=== PATIENT | male | born 1940 | race Caucasian/White ===

== ENCOUNTER 2016-10-03 16:51 | Inpatient (IN) | payer OTHER ==
--- NOTE | 2016-10-03 16:59 | PDOC ---
Rapid Medical Evaluation Time Seen by Provider: 10/03/16 16:58 Medical Evaluation: Allergies Allergy/AdvReac Type Severity Reaction Status Date / Time No Known Allergies Allergy Verified 01/30/14 09:31 o I have performed a brief in-person evaluation of this patient. o The patient presents with a chief complaint of: blurry vision, memory issue for the past 4 days. Pt had a head CT today; Dr. Nielson sent him over here for admission for possible CVA/TIA. o Pertinent physical exam findings: none o I have ordered the following: labs, EKG, cXR, UA (for admission) o The patient will proceed to the ED for further evaluation.
--- NOTE | 2016-10-03 18:13 | PDOC ---
History of Present Illness - General Chief Complaint: CVA/TIA Stated Complaint: PCP ADMIT Time Seen by Provider: 10/03/16 16:58 History Source: Patient, Family - History of Present Illness Timing/Duration: 1 week Associated Symptoms: denies: headaches, malaise, nausea/vomiting, seizure, weakness Past History - Past Medical History Allergies/Adverse Reactions: Allergies Allergy/AdvReac Type Severity Reaction Status Date / Time No Known Allergies Allergy Verified 10/03/16 17:03 Home Medications: Ambulatory Orders No Home Medications 0 dose .ROUTE UTDICT 01/23/14 Diabetes: Yes HTN: Yes - Surgical History Cholecystectomy: Yes - Psycho/Social/Smoking Cessation Hx Suicidal Ideation: No Smoking History: Never smoked Information on smoking cessation initiated: No Review of Systems - Review of Systems Constitutional: No: Chills, Fever HEENTM: Yes: Blurred Vision. No: Eye Pain ABD/GI: No: Nausea, Vomiting Neurological: No: Headache, Dizziness *Physical Exam - Vital Signs Last Vital Signs Temp Pulse Resp BP Pulse Ox 97.9 F 80 18 162/86 98 10/03/16 16:57 10/03/16 16:57 10/03/16 16:57 10/03/16 16:57 10/03/16 16:57 - Physical Exam General Appearance: Yes: Appropriately Dressed. No: Apparent Distress HEENT: positive: Normal Voice Neck: positive: Supple Respiratory/Chest: positive: Lungs Clear, Normal Breath Sounds. negative: Respiratory Distress Cardiovascular: positive: Regular Rate, S1, S2 Gastrointestinal/Abdominal: positive: Soft. negative: Tender Integumentary: positive: Dry, Warm Neurologic: positive: Fully Oriented, Alert, Normal Mood/Affect, Normal Response , Motor Strength 5/5, Finger to Nose. negative: Facial Droop, Sensory Deficit, Confused, Disoriented ED Treatment Course - LABORATORY CBC & Chemistry Diagram: 10/03/16 17:58 10/03/16 17:58 Medical Decision Making - Medical Decision Making 10/03/16 18:08 76 yo M, h/o ?HTN, NIDDM, sent in by PMD for new brain mets on CT today as per discussion w/ Dr Nielson. Pt has been c/o mostly L sided blurry vision x ~ 1 week. Denies RODRÍGUEZ, dizziness, slurred speech, focal weakness, n/v, seizures or unexplained weight loss. No abd or back pain, and no change in BM or acute urinary issues. See exa, 76 yo m, blurry vision x 1 week w/ new brain mets on CT today Well candice and stable w/ no focal deficit -labs -admit *DC/Admit/Observation/Transfer Diagnosis at time of Disposition: Brain metastases, Blurry vision, bilateral - Discharge Dispostion Condition at time of disposition: Stable Admit: Yes - Referrals Referrals: Chelle Nielson MD [Primary Care Provider] -
[2016-10-03 18:23] LABS: BASOPHIL 0.7 % (0-2.0); EOSINOPHIL 8.9 % (0-4.5); MCH 29.3 pg (25.7-33.7); MCHC 34.2 g/dl (32.0-35.9); MEAN CELL VOLUME 85.7 fl (80-96); MEAN PLT VOLUME 7.2 fl (7.5-11.1); NEUTROPHILS 47.9 % (42.8-82.8); PLATELET COUNT 199 K/MM3 (134-434); RDW 13.5 % (11.9-15.9); WHITE BLOOD COUNT 6.7 K/mm3 (4.0-10.0)
[2016-10-03 18:34] LABS: ANION GAP 9 (8-16); BILIRUBIN,TOTAL 0.7 mg/dL (0.2-1.0); CALCIUM 8.3 mg/dL (8.5-10.1); CO2 29 mmol/L (21-32); CREATININE 0.9 mg/dL (0.7-1.3); GLUCOSE,RANDOM 107 mg/dL (74-106); SGOT/AST 18 U/L (15-37); SGPT/ALT 22 U/L (12-78)
[2016-10-03 18:37] LABS: ALK PHOS 55 U/L (45-117); TROPONIN I < 0.02 ng/ml (0.00-0.05)
[2016-10-03 18:55] LABS: INR 1.03 (0.82-1.09); PROTHROMBIN TIME (PATIENT) 11.3 SEC (9.98-11.88)
[2016-10-03 18:57] LABS: NEG URINE CALC NO; URINE APPEARANCE CLEAR; URINE COLOR YELLOW
[2016-10-03 18:58] LABS: URINE BILIRUBIN NEGATIVE (NEGATIVE); URINE BLOOD NEGATIVE (NEGATIVE); URINE GLUCOSE (UA) NEGATIVE (NEGATIVE); URINE KETONE NEGATIVE (NEGATIVE); URINE PROTEIN NEGATIVE (NEGATIVE); URINE UROBILINOGEN NORMAL E.U./dl (0.2-1.0)
[2016-10-03 18:59] LABS: URINE LEUK ESTERASE NEGATIVE (NEGATIVE); URINE NITRITE NEGATIVE (NEGATIVE)
--- NOTE | 2016-10-03 19:52 | PN ---
Progress Note (short form) - Note Progress Note: NEUROSURGERY CONSULT DICTATED 76 yo RH Male with h/o HTN, NIDDM, ex-smoker 20 years ago c/o mostly L sided blurry vision x ~ 1 week. Denies RODRÍGUEZ, [place], Sz, dizziness, slurred speech, weakness , or numbness. Lost 15 pounds in the past couple months. No h/o primary malignancy. Family at bedside in ED. PE: AF, VSS HEENT- NC/AT; Neck- supple; Cor- RR; Lungs- CTA; Abd- mild protruberant, + BS; Ext- edema and chronic venous changes R > L distal LE A/A/Ox3; memory marginal CN- intact II-XII; Motor- 5/5 without drift; Sensation- intact LT/vibration; DTR -1+; B toes upgoing; Cerebellar- intact B FTN Head CT- Multiple hyperdense (blood fluid levels) and enhancing lesions; R frontal, R occpital; L posterior temporal, L parietal and R cerebellar lesions; + vasogenic edema, mild mass effect Brain MRI (2012 report only)- atrophy, no stroke or reported mass lesion platelet 199, INR 1.03 , Cr 0.9, BUN [address] of Chest/abd/pelvis Brain MRI with/without Multifocal brain lesions are generally not treated surgically No steroid for now given IRINA Mcbride for sz prophylaxis Hold ASA D/w patient, , daughter and Dr Nielson Oncology input Pt concurs with plans
--- NOTE | 2016-10-03 20:48 | CONSULT ---
Consult - text type - Consultation Consultation Note: PAtient comes in with blurry vision. CT head done as outpatient reveals multiple brain mets denies: headaches, malaise, nausea/vomiting, seizure, weakness mildly confused not able to give detailed history reports no complaints. states he is comfortable. tells that he is in the hospital. does not recall the date Past History DM HTN Allergies/Adverse Reactions: Allergies Allergy/AdvReac Type Severity Reaction Status Date / Time No Known Allergies Allergy Verified 10/03/16 17:03 Home Medications Medication Instructions Recorded No Home Medications 0 dose .ROUTE UTDICT 01/23/14 Aspirin [ASA -] 81 mg PO DAILY 10/03/16 Carvedilol [Coreg] 25 mg PO DAILY 10/03/16 Glimepiride [Amaryl -] 4 mg PO BID 10/03/16 Hydrochlorothiazide [Hctz -] 25 mg PO DAILY 10/03/16 Losartan Potassium 100 mg PO DAILY 10/03/16 Metformin HCl 500 mg PO DAILY 10/03/16 - Surgical History Cholecystectomy: Yes *Physical Exam - Vital Signs Last Vital Signs Temp Pulse Resp BP Pulse Ox 97.9 F 80 18 162/86 98 10/03/16 16:57 10/03/16 16:57 10/03/16 16:57 10/03/16 16:57 10/03/16 16:57 - Physical Exam General Appearance: Yes: Appropriately Dressed. No: Apparent Distress HEENT: positive: Normal Voice Neck: positive: Supple Respiratory/Chest: positive: Lungs Clear, Normal Breath Sounds. negative: Respiratory Distress Cardiovascular: positive: Regular Rate, S1, S2 Gastrointestinal/Abdominal: positive: Soft. negative: Tender Integumentary: positive: Dry, Warm Neurologic: positive: Fully Oriented, Alert, Normal Mood/Affect, Normal Response , Motor Strength 5/5, Finger to Nose. negative: Facial Droop, Sensory Deficit, Confused, Disoriented Abnormal Lab Results 10/03/16 10/03/16 17:58 17:58 Hct 35.0 L MPV 7.2 L Monocytes % 10.7 H Eosinophils % 8.9 H Random Glucose 107 H Calcium 8.3 L Total Protein 6.0 L Albumin 3.0 L A/P 76 yo M, h/o ?HTN, NIDDM, sent in by PMD for new brain mets on CT today as per discussion w/ Dr Nielson. Pt has been c/o mostly L sided blurry vision x ~ 1 week. Denies RODRÍGUEZ, dizziness, slurred speech, focal weakness, n/v, seizures or unexplained weight loss. No abd or back pain, and no change in bowel habits or acute urinary issues. Patient mildly confused Brain mets noted on CT scan--multiple, with moderate edema and ? intralesional bleed will start decadron 4mg Q 6h/protonix/gentlee hydration awaiting CT c/a/p to consider biopsy of easily accessible lesion neurosurgery input noted will get rad-onc nput
--- NOTE | 2016-10-03 20:57 | HP ---
DATE OF ADMISSION: DATE OF DICTATION: 10/03/2016 HISTORY OF PRESENT ILLNESS: This is a 76-year-old male who came to my office referred by summer intern. Patient is not known to me before. He is free of hypertension, diabetes. Some visual disturbance was noted by the summer intern, he advised CT scan. CT scan was done today, it showed multiple brain metastases, so being admitted to the hospital. PHYSICAL EXAMINATION: General: He is awake and talking. Vital signs: Blood pressure 130/80, pulse 76, respirations 20, temperature 98. HEENT: Unremarkable. Neck: Supple. No JVD. Lungs: Clear. Heart: S1, S2 normal. No S3, S4. Abdomen: Soft. There is possible soft tissue mass noted in the right upper quadrant. Extremities: Legs no edema. Neurologic: Examination intact. LABORATORY: WBC 6.7, hemoglobin 12, hematocrit 35, INR 1.3. Chemistry unremarkable. Calcium 8.3, albumin 3. IMPRESSION: Metastatic disease to the brain, etiology not clear. Case discussed with , advised admission. More CAT scan and another MRI of the brain done. Explained to the daughter about the disease. Patient is presently informed. FINAL DIAGNOSIS: Metastatic brain disease, primary not known at this time. Cherelle [id number]
[2016-10-03] MEDS ORDERED: PT OWN MED DRAWER 7, Y5N ONE (23:02)
[2016-10-03] MEDS: levETIRAcetam 500 MG TABLET (FP) PO SCH (23:12)
[2016-10-03] MEDS: SODIUM CHLORIDE 1,000 ML IV SCH (23:12)
[2016-10-03 23:55] VITALS: BMI 25.8
[2016-10-04] MEDS: DEXAMETHASONE SOD PHOSPHATE 4 MG/1 ML VIAL IVPB SCH ×4 (03:06→21:41)
--- NOTE | 2016-10-04 08:24 | HP ---
Admitting History and Physical - Primary Care Physician PCP: Chelle Nielson - Admission Chief Complaint: Blurring vision in left eye History of Present Illness: 76 yrs old man H/O HTN, T2DM , yesterday admitted with abnormal Ct head that show multiple Brain opacities, patient has been havig blurring of vision in Left eye for past few wks, visited [employer] [place] , Ct haed was performed that shows multiple enhancing mass so admitted for further evaluation , patient denies any head ache, nausea, vomiting or double vision denies any wt loss, difficulty in swallowing, no motor sensory deficit. Patient never had Colonoscopy denies any family history of malignancy. History Source: Patient - Past Medical History Cardiovascular: Yes: HTN Endocrine: Yes: Diabetes Mellitus - Smoking History Smoking history: Never smoked Home Medications - Allergies Allergies/Adverse Reactions: Allergies Allergy/AdvReac Type Severity Reaction Status Date / Time No Known Allergies Allergy Verified 10/03/16 17:03 - Home Medications Home Medications: Ambulatory Orders No Home Medications 0 dose .ROUTE UTDICT 01/23/14 Aspirin [ASA -] 81 mg PO DAILY 10/03/16 Carvedilol [Coreg] 25 mg PO DAILY 10/03/16 Glimepiride [Amaryl -] 4 mg PO BID 10/03/16 Hydrochlorothiazide [Hctz -] 25 mg PO DAILY 10/03/16 Losartan Potassium 100 mg PO DAILY 10/03/16 Metformin HCl 500 mg PO DAILY 10/03/16 Family Disease History - Family Disease History Family History: Denies Family Disease History: Heart Disease: Grandparent, Father, Mother, Brother, Sister, Son, Daughter, CA: Grandparent, Father, Mother, Brother, Sister, Son, Daughter Physical Examination Vital Signs: Vital Signs Temperature 97.6 F 10/04/16 05:55 Pulse Rate 80 10/04/16 05:55 Respiratory Rate 18 10/04/16 05:55 Blood Pressure 153/74 10/04/16 05:55 O2 Sat by Pulse Oximetry (%) 99 10/03/16 21:39 GENERAL; Elderly man walking comfortably, not in distress HEENT:MM moist, no facial asymmetry, mm moist, no Jaundice, anemia, PERLLA, EOMI NECK:No Palpable node, no JVD, No bruit, Supple. CHEST:Non tender CTA B/L CVS:S1S2 R no murmur Gallop or rub ABDOMEN:No distention, non tender, no organomegaly BS + EXTREMITIES:Rt calf tenderness with Rt LE swelling with venous stasis changes , Pulses + [employer]ER:AOx3, normal cranial N, no motor sensory deficit, normal reflexes DERM: No rash or echymoses Imaging - Results Chest X-ray: Report Reviewed (Normal, no Cardiomegaly) Cat Scan: Image Reviewed (Ct Head shows Multiple hypodensities.) Ultrasound: Pending, Report Reviewed, Image Reviewed, Other (Rt Le Extensive DVT ) MRI: Pending, Other (Brain report is pending) EKG: Pending Problem List - Problems (1) Brain metastases Assessment/Plan: C/O Blurring of vision multiple, enhancing lesion, needs w/u for primary, never had Colonoscopy ex smoker stopped smoking 30 yrs ago no c/o dysuria will F/U PSA Cont Decadroone and Keppra, Oncology and Neuro surgery input appreciated. Code(s): C79.31 - SECONDARY MALIGNANT NEOPLASM OF BRAIN (2) Blurry vision, bilateral Assessment/Plan: Due to Brain mets , unknown Primary lesion, no clinical sign of cerbral edema, evaluated by Oncology and Neuro Surgery, will F/u work for primary site, mean time cont decadrone and Keppra for seizures and Brain edema prophylaxis . Code(s): H53.8 - OTHER VISUAL DISTURBANCES (3) HTN (hypertension) Assessment/Plan: Well controlled on current meds, Cont Coreg, HCTZ and Losartan at home dose Hold Code(s): I10 - ESSENTIAL (PRIMARY) HYPERTENSION (4) Diabetes mellitus Assessment/Plan: H/O T2DM on oral pills will hold metformin cont Amary , considering on HIgh dose steroids cont correction dose pre meal coverage. F/U HbA1C level Code(s): E11.9 - TYPE 2 DIABETES MELLITUS WITHOUT COMPLICATIONS Qualifiers: Diabetes mellitus type: type 2 Diabetes mellitus complication status: without complication (5) Deep vein blood clot of right lower extremity Assessment/Plan: Patient c/o Rt Le swelling and pain for past few days, LE Doppler shows Rt LE extensive DVT till common Femoral V, patient has multiple mets will consult Oncology for input if patient needs IVC filter Code(s): I82.401 - ACUTE EMBOLISM AND THOMBOS UNSP DEEP VEINS OF R LOW EXTREM Qualifiers: Affected thrombotic vein of extremity: femoral Chronicity: acute Qualified Code(s): I82.411 - Acute embolism and thrombosis of right femoral vein (6) Pulmonary nodule Assessment/Plan: 1.6 Cm Left UL Pulmonary nodule with Medistinal LN enlargement, will F/u with Oncology/Pulmonary Code(s): R91.1 - SOLITARY PULMONARY NODULE (7) Colonic thickening Assessment/Plan: Colonic wall thickening, patient never had colonoscopy will F/U with Gi consult for input and possible for colonnoscopy to R/U Ca colon. Code(s): K63.9 - DISEASE OF INTESTINE, UNSPECIFIED
[2016-10-04] MEDS ORDERED: INSULIN SLIDING SCALE (NOVOLOG) 1 VIAL SQ SCH (11:00)
[2016-10-04] MEDS: CARVEDILOL 25 MG TABLET (FP) PO SCH (12:30)
[2016-10-04] MEDS: GLIMEPIRIDE 4 MG TABLET (FP) PO SCH ×2 (12:30→17:05)
[2016-10-04] MEDS: LOSARTAN POTASSIUM 50 MG TABLET (FP) PO SCH (12:30)
[2016-10-04] MEDS: levETIRAcetam 500 MG TABLET (FP) PO SCH ×2 (12:30→21:41)
[2016-10-04] MEDS: HYDROCHLOROTHIAZIDE 25 MG TABLET (FP) PO SCH (12:30)
[2016-10-04] MEDS: PANTOPRAZOLE 40 MG TABLET (FP) PO SCH (12:30)
--- NOTE | 2016-10-04 13:22 | CONS ---
DATE OF CONSULTATION: 10/03/2016 REFERRING PHYSICIAN: Chelle Nielson MD CONSULTING PHYSICIAN: Johnathon López MD, neurosurgery. CHIEF COMPLAINT: One week history of blurriness and CT scan evidence of probable intracranial metastases. HISTORY OF PRESENT ILLNESS: The patient is a 76-year-old right-handed male with history of hypertension and type 2 diabetes, who has complained of an approximately 1-week history of left and right eye blurriness. This has improved more recently. The patients daughter did report that he had lost some weight and reported some changes to his overall personality and behavior over the past month at least. He denies any primary sustained malignancy. He is an ex-smoker and quit smoking 20 + years ago by report. He does not have a history of GI cancer or skin cancer by report. There is no nausea, vomiting, seizure activity, weakness, numbness, diplopia, or any other signs of neurological dysfunction. PAST MEDICAL HISTORY: Significant for hypertension and type 2 diabetes. MEDICATIONS: Include baby aspirin and metformin. ALLERGIES: There are no known drug allergies. FAMILY HISTORY: Noncontributory. SOCIAL HISTORY: He is an ex-smoker and used to smoke about 1 pack of cigarettes a day until about 20 years earlier. He drinks alcohol socially. He is retired and has lived down in the [facility] in the winter months in general. REVIEW OF SYSTEMS: Otherwise negative for other major cardiovascular, pulmonary , gastrointestinal, genitourinary, endocrinologic, neurologic, or psychologic problems except for the above. PHYSICAL EXAMINATION: Vital signs: Temperature is 98.4, blood pressure is 171/78, with pulse rate of 76, O2 saturation is 98% on room air. HEENT: Examination shows him to be normocephalic, atraumatic, anicteric. Neck: Supple. Coronary: Examination demonstrated regular rhythm. Lungs: Clear bilaterally. Abdomen: Mildly protuberant. He has active bowel sounds. Extremities: Examination shows chronic venous changes of bilateral lower extremities, right greater than left, with 1 to 2+ edema. There is satisfactory capillary refill. Pt reports chronic R > L LE swelling. Neurologic: He is awake, alert, and oriented x3. His speech is normal. His memory is adequate. There is no other higher cortical function deficit. Cranial nerve examination is intact 2 through 12. Motor examination shows 5/5 strength without drift. Sensory examination is intact to light touch and vibratory sensation. Deep tendon reflexes are hyporeflexic throughout. He has bilateral upgoing toes. His gait was not tested for safety reasons. Cerebellar examination demonstrated intact finger to nose examination. LABORATORY EXAMINATION: Shows sodium to be 145, potassium to be 3.7, BUN is 16, creatinine is 0.9, random glucose is 107, albumin is 3.0. INR is 1.03. White blood cell count is 6700, hemoglobin is 12, hematocrit 35, and platelet count is 199, 000. Urinalysis is negative. CT scan of the head demonstrated multifocal intracranial hyperdense lesion which enhances further with contrast administration. There is surrounding vasogenic edema around the various lesions. There is a white medial occipital lesion, a left posterior temporal lesion, a right frontal convexity lesion as well as several smaller left parietal lesions with satellites. There is mild mass effect. Mild cerebral atrophy is noted. There may be possibly enhancing lesion in the right cerebellum, as well. There is some possible blood fluid level. IMPRESSION: 1. Probable hemorrhagic metastatic lesions to the brain of unknown primary. 2. Hypertension. 3. Diabetes. RECOMMENDATIONS: The patient presents with some personality and behavioral changes in the last month or so according to the daughter. He also has some left eye blurry vision, which has improved in the last day or two. He denies any sign of increasing cranial pressure otherwise. Physical examination is nonfocal. CT scan of the brain demonstrated a multifocal hyperdense and possibly hemorrhagic lesion with enhancement. This is most consistent with metastasis. Hemorrhagic lesions are common with renal cell carcinoma, melanoma, and lung cancer. Baseline oncology evaluation is recommended. Baby aspirin should be held at this time. Keppra for seizure prophylaxis is ordered. Given the multiple intracranial lesion as well as associated cerebral vasogenic oedema. CT scan of the chest, abdomen, and pelvis has been ordered by the medical team. The above plan was discussed with the patient, his family, as well as Dr. Nielson, the referring medical attending. We will hold off steroids for right now given his history of diabetes. All questions were answered at the bedside. The patient concurred with the treatment plan at this time. JOHNATHON LÓPEZ M.D. [id number] MTDD
[2016-10-04] MEDS: INSULIN SLIDING SCALE (NOVOLOG) 1 VIAL SQ SCH ×2 (17:06→22:02)
[2016-10-04] MEDS: SODIUM CHLORIDE 1,000 ML IV SCH (21:41)
[2016-10-04] MEDS ORDERED: INSULIN (NOVOLOG) ASPART 100 UNITS/ML 10ML VIAL ONE (21:55)
[2016-10-05] MEDS: DEXAMETHASONE SOD PHOSPHATE 4 MG/1 ML VIAL IVPB SCH ×4 (03:33→22:55)
[2016-10-05] MEDS: INSULIN SLIDING SCALE (NOVOLOG) 1 VIAL SQ SCH ×3 (06:27→16:56)
[2016-10-05] MEDS: GLIMEPIRIDE 4 MG TABLET (FP) PO SCH ×2 (06:27→16:56)
[2016-10-05 08:02] LABS: BASOPHIL 0.1 % (0-2.0); MCH 29.1 pg (25.7-33.7); MCHC 34.1 g/dl (32.0-35.9); MEAN CELL VOLUME 85.3 fl (80-96); MEAN PLT VOLUME 7.3 fl (7.5-11.1); NEUTROPHILS 84.2 % (42.8-82.8); PLATELET COUNT 202 K/MM3 (134-434); RDW 13.1 % (11.9-15.9); WHITE BLOOD COUNT 8.3 K/mm3 (4.0-10.0)
[2016-10-05 08:36] LABS: ALBUMIN 3.1 g/dl (3.4-5.0); ANION GAP 11 (8-16); CALCIUM 8.4 mg/dL (8.5-10.1); CO2 26 mmol/L (21-32); GLUCOSE,RANDOM 247 mg/dL (74-106); SGOT/AST 13 U/L (15-37); SGPT/ALT 21 U/L (12-78)
[2016-10-05 08:37] LABS: ALK PHOS 54 U/L (45-117); BILIRUBIN,TOTAL 0.7 mg/dL (0.2-1.0); CREATININE 0.9 mg/dL (0.7-1.3); TOT PROT 6.3 g/dl (6.4-8.2)
[2016-10-05] MEDS ORDERED: ENOXAPARIN NA (PORCINE) 40 MG/0.4 ML DISP.SYRIN SQ SCH (10:00)
--- NOTE | 2016-10-05 10:06 | PN ---
Progress Note (short form) - Note Progress Note: NEUROSURGERY No H/A, N/V PE: Tmax 98.6, AF, VSS HEENT- NC/AT; Neck- supple; Cor- RR; Lungs- CTA; Abd- mildly distended, + BS; Ext- edema and chronic venous changes R > L distal LE A/A/Ox3, speech fluent CN- intact II-XII; Motor- 5/5 without drift; Sensation- intact LT/vibration; DTR -1+; B toes upgoing; Cerebellar- intact B FTN Head CT- Multiple hyperdense (blood fluid levels) and enhancing lesions; R frontal, R occipital; L posterior temporal, L parietal and R cerebellar lesions ; + vasogenic edema, mild mass effect Brain MRI (2012 report only)- atrophy, no stroke or reported mass lesion New Brain MRI- multifocal enhancing lesion,(L frontal, L parietal, L posterior temporal, R frontal, R medial occipital, R cerebellar); L posterior temporal cystic component, + some vasogenic edema; No HCP CT of Chest/abd/pelvis- multiple mediastinal nodes; diverticulosis Doppler- R LE DVT Multifocal brain mets are generally not treated surgically Keaurelianora for sz prophylaxis R LE DVT, SQ heparin for now and IVC filter Oncology f/u and thoracic surgery input for possible thoroscopic bx of mediastinal nodes D/w Dr Nielson and Dr Everett Pt concurs with plans
--- NOTE | 2016-10-05 10:09 | PN ---
Progress Note, Physician Chief Complaint: Fees better History of Present Illness: Has DVT Rt lower extremity Case discussed with Dr Borjas and Nicolasa,needs IVC filter - Current Medication List Current Medications: Active Medications Carvedilol (Coreg -) 25 mg PO DAILY [facility] Last Admin: 10/04/16 12:30 Dose: 25 mg Dexamethasone Sodium Phosphate (Decadron Injection -) 4 mg IVPB Q6H-IV [facility] Last Admin: 10/05/16 03:33 Dose: 4 mg Glimepiride (Amaryl -) 4 mg PO 0700,1630 [facility] Last Admin: 10/05/16 06:27 Dose: 4 mg Hydrochlorothiazide (Hctz -) 25 mg PO DAILY [facility] Last Admin: 10/04/16 12:30 Dose: 25 mg Insulin Aspart (Novolog Vial Sliding Scale -) 1 vial SQ TIDAC [facility] PRN Reason: Protocol Last Admin: 10/05/16 06:27 Dose: 8 units Levetiracetam (Keppra -) 500 mg PO BID [facility] Last Admin: 10/04/16 21:41 Dose: 500 mg Losartan Potassium (Cozaar -) 100 mg PO DAILY [facility] Last Admin: 10/04/16 12:30 Dose: 100 mg Pantoprazole Sodium (Protonix -) 40 mg PO DAILY [facility] Last Admin: 10/04/16 12:30 Dose: 40 mg - Objective Vital Signs: Vital Signs Temperature 97.4 F L 10/05/16 05:00 Pulse Rate 71 10/05/16 05:00 Respiratory Rate 18 10/05/16 05:00 Blood Pressure 145/75 10/05/16 05:00 O2 Sat by Pulse Oximetry (%) 100 10/04/16 21:00 Constitutional: Yes: Calm Eyes: Yes: WNL HENT: Yes: WNL Neck: Yes: WNL Cardiovascular: Yes: WNL Respiratory: Yes: WNL Gastrointestinal: Yes: WNL ...Rectal Exam: Yes: Deferred Neurological: Yes: Alert Labs: CBC, BMP 10/05/16 06:30 10/05/16 06:30 INR, PTT INR 1.03 (0.82-1.09) 10/03/16 17:58 - ....Imaging Cat Scan: Report Reviewed
--- NOTE | 2016-10-05 10:11 | PN ---
Progress Note, Physician - Current Medication List Current Medications: Active Medications Carvedilol (Coreg -) 25 mg PO DAILY [facility] Last Admin: 10/04/16 12:30 Dose: 25 mg Dexamethasone Sodium Phosphate (Decadron Injection -) 4 mg IVPB Q6H-IV [facility] Last Admin: 10/05/16 03:33 Dose: 4 mg Glimepiride (Amaryl -) 4 mg PO 0700,1630 [facility] Last Admin: 10/05/16 06:27 Dose: 4 mg Hydrochlorothiazide (Hctz -) 25 mg PO DAILY [facility] Last Admin: 10/04/16 12:30 Dose: 25 mg Insulin Aspart (Novolog Vial Sliding Scale -) 1 vial SQ TIDAC [facility] PRN Reason: Protocol Last Admin: 10/05/16 06:27 Dose: 8 units Levetiracetam (Keppra -) 500 mg PO BID [facility] Last Admin: 10/04/16 21:41 Dose: 500 mg Losartan Potassium (Cozaar -) 100 mg PO DAILY [facility] Last Admin: 10/04/16 12:30 Dose: 100 mg Pantoprazole Sodium (Protonix -) 40 mg PO DAILY [facility] Last Admin: 10/04/16 12:30 Dose: 40 mg - Objective Vital Signs: Vital Signs Temperature 97.4 F L 10/05/16 05:00 Pulse Rate 71 10/05/16 05:00 Respiratory Rate 18 10/05/16 05:00 Blood Pressure 145/75 10/05/16 05:00 O2 Sat by Pulse Oximetry (%) 100 10/04/16 21:00 Labs: CBC, BMP 10/05/16 06:30 10/05/16 06:30 INR, PTT INR 1.03 (0.82-1.09) 10/03/16 17:58 Assessment/Plan IVC filter ,Continue IV decadron
[2016-10-05] MEDS: CARVEDILOL 25 MG TABLET (FP) PO SCH (10:45)
[2016-10-05] MEDS: levETIRAcetam 500 MG TABLET (FP) PO SCH ×2 (10:45→22:56)
[2016-10-05] MEDS: LOSARTAN POTASSIUM 50 MG TABLET (FP) PO SCH (10:45)
[2016-10-05] MEDS: PANTOPRAZOLE 40 MG TABLET (FP) PO SCH (10:45)
[2016-10-05] MEDS: HYDROCHLOROTHIAZIDE 25 MG TABLET (FP) PO SCH (10:45)
--- NOTE | 2016-10-05 13:31 | EKG ---
Test Reason : Blood Pressure : / mmHG Vent. Rate : 078 BPM Atrial Rate : 078 BPM P-R Int : 152 ms QRS Dur : 094 ms QT Int : 408 ms P-R-T Axes : 041 -31 038 degrees QTc Int : 465 ms SINUS RHYTHM WITH OCCASIONAL PREMATURE VENTRICULAR COMPLEXES LEFT AXIS DEVIATION CANNOT RULE OUT ANTERIOR INFARCT , AGE UNDETERMINED ABNORMAL ECG WHEN COMPARED WITH ECG OF 25-JAN-2009 16:00, PREMATURE VENTRICULAR COMPLEXES ARE NOW PRESENT Confirmed by TON ALFARO, DEMIAN ([id number]) on 10/05/2016 1:31:22 PM Referred By: Confirmed By:DEMIAN CAMILO MD
--- NOTE | 2016-10-05 13:31 | EKG ---
Test Reason : Blood Pressure : / mmHG Vent. Rate : 073 BPM Atrial Rate : 073 BPM P-R Int : 146 ms QRS Dur : 102 ms QT Int : 432 ms P-R-T Axes : 024 -27 012 degrees QTc Int : 475 ms SINUS RHYTHM WITH OCCASIONAL and consecutive PREMATURE VENTRICULAR COMPLEXES NONSPECIFIC ST AND T WAVE ABNORMALITY ABNORMAL ECG WHEN COMPARED WITH ECG OF 03-OCT-2016 17:39, NONSPECIFIC T WAVE ABNORMALITY NOW EVIDENT IN INFERIOR LEADS Confirmed by TON ALFARO, DEMIAN ([id number]) on 10/05/2016 1:31:14 PM Referred By: Chely PARMAR Confirmed By:DEMIAN CAMILO MD
[2016-10-05] MEDS ORDERED: PT OWN MED DRAWER 7, Y5N ONE (16:51)
--- NOTE | 2016-10-05 20:07 | PN ---
Progress Note (short form) - Note Progress Note: PAtient seen and examined Denies any complaints Last Vital Signs Temp Pulse Resp BP Pulse Ox 97.3 F L 71 20 118/52 100 10/05/16 18:44 10/05/16 18:44 10/05/16 18:44 10/05/16 18:44 10/05/16 12:35 Cor: RSR, No murmurs, No gallops Lungs: Clear to P&A Abd: Soft, Normal bowel sounds, No organomegaly Ext:No significant edema Skin: No rashes, Integument intact Abnormal Lab Results 10/05/16 10/05/16 06:30 06:30 MPV 7.3 L Neutrophils % 84.2 H D Monocytes % 2.9 L Random Glucose 247 H D Calcium 8.4 L AST 13 L D Total Protein 6.3 L Albumin 3.1 L Current Medications Carvedilol (Coreg -) 25 mg PO DAILY [facility] Last Admin: 10/05/16 10:45 Dose: 25 mg Dexamethasone Sodium Phosphate (Decadron Injection -) 4 mg IVPB Q6H-IV [facility] Last Admin: 10/05/16 16:10 Dose: 4 mg Glimepiride (Amaryl -) 4 mg PO 0700,1630 [facility] Last Admin: 10/05/16 16:56 Dose: 4 mg Hydrochlorothiazide (Hctz -) 25 mg PO DAILY [facility] Last Admin: 10/05/16 10:45 Dose: 25 mg Insulin Aspart (Novolog Vial Sliding Scale -) 1 vial SQ TIDAC [facility] PRN Reason: Protocol Last Admin: 10/05/16 16:56 Dose: 12 units Levetiracetam (Keppra -) 500 mg PO BID [facility] Last Admin: 10/05/16 10:45 Dose: 500 mg Losartan Potassium (Cozaar -) 100 mg PO DAILY [facility] Last Admin: 10/05/16 10:45 Dose: 100 mg Pantoprazole Sodium (Protonix -) 40 mg PO DAILY [facility] Last Admin: 10/05/16 10:45 Dose: 40 mg A/P 76 y/o patient with multiple brain mets. DELMAR lung lesion, mediastinal adenopathy , thickening of colon discussed with neurosurgery disucssed with IR s/p ivc filter today , given DVT and brain mets to get biopsy of DELMAR lung mass discussed with patient and his sister in great detail discussed overall poor prognosis continue decadron/protonix
[2016-10-06] MEDS: DEXAMETHASONE SOD PHOSPHATE 4 MG/1 ML VIAL IVPB SCH ×5 (03:15→22:18)
[2016-10-06] MEDS ORDERED: LORAZEPAM CARPU-JECT 2 MG/ML DISP.SYRIN IVPUSH ONE (06:05)
[2016-10-06] MEDS: GLIMEPIRIDE 4 MG TABLET (FP) PO SCH ×2 (06:11→17:16)
[2016-10-06] MEDS: INSULIN SLIDING SCALE (NOVOLOG) 1 VIAL SQ SCH ×3 (06:11→17:16)
--- NOTE | 2016-10-06 06:14 | HOSP ---
Subjective - Review of Symptoms Events since last encounter: 76 y/o Male with metastatic brain cancer, and lung mass, found to be aggitated and confused. Patient reported to be walking into other people's room. Patient believes he is at his home and that his who has had dementia for a long time, is in the house. Condition 10 called. On examination patient Alert and oriented to self only. Aggitated and confused. Neurological: Yes: Confusion Physical Examination Vital Signs: Vital Signs Temperature 97.6 F 10/06/16 02:00 Pulse Rate 97 H 10/06/16 02:00 Respiratory Rate 20 10/06/16 02:00 Blood Pressure 98/55 10/06/16 02:00 O2 Sat by Pulse Oximetry (%) 100 10/05/16 12:35 Constitutional: Yes: Well Nourished, Obese Eyes: Yes: WNL HENT: Yes: Atraumatic, Normocephalic Neck: Yes: WNL Cardiovascular: Yes: WNL Respiratory: Yes: WNL Gastrointestinal: Yes: WNL Musculoskeletal: Yes: WNL Extremities: Yes: WNL Peripheral Pulses WNL: Yes Integumentary: Yes: WNL Neurological: Yes: Confusion. No: Unsteady Gait ...Motor Strength: WNL Psychiatric: Yes: Agitated Labs: CBC, BMP 10/05/16 06:30 10/05/16 06:30 Hospitalist Encounter Assessment: Confusion and aggitation secondary to brain mets- non compliant with medication - Decadron. Recommendations/Interventions: Patient convinced to take decadron and given ativan 2mg IVP stat. Recommend advance directives to be d/w family.
--- NOTE | 2016-10-06 08:30 | PN ---
Progress Note (short form) - Note Progress Note: NEUROSURGERY No H/A, N/V S/p IVC filter PE: AF, VSS HEENT- NC/AT; Neck- supple; Cor- RR; Lungs- CTA; Abd- mildly distended, + BS; Ext- edema and chronic venous changes R > L distal LE; stable A/A/Ox3, speech fluent CN- intact II-XII; Motor- 5/5 without drift; Sensation- intact LT/vibration; DTR -1+; B toes upgoing; Cerebellar- intact B FTN Head CT- Multiple hyperdense (blood fluid levels) and enhancing lesions; R frontal, R occipital; L posterior temporal, L parietal and R cerebellar lesions ; + vasogenic edema, mild mass effect Brain MRI (2012 report only)- atrophy, no stroke or reported mass lesion New Brain MRI- multifocal enhancing lesion,(L frontal, L parietal, L posterior temporal, R frontal, R medial occipital, R cerebellar); L posterior temporal cystic component, + some vasogenic edema; No HCP CT of Chest/abd/pelvis- DELMAR lesion, multiple mediastinal nodes; diverticulosis Doppler- R LE DVT Multifocal brain mets Silvinoppra for sz prophylaxis R LE DVT, s/p IVC filter; leg elevation when on bed D/w Dr Everett yesterday Possible thoracic surgery input for possible thoroscopic bx of mediastinal nodes /DELMAR lesions
--- NOTE | 2016-10-06 09:51 | PN ---
Progress Note, Physician Chief Complaint: Confused History of Present Illness: Going for lung biopsy by Dr Castellano - Current Medication List Current Medications: Active Medications Carvedilol (Coreg -) 25 mg PO DAILY [facility] Last Admin: 10/05/16 10:45 Dose: 25 mg Dexamethasone Sodium Phosphate (Decadron Injection -) 4 mg IVPB Q6H-IV [facility] Last Admin: 10/06/16 08:13 Dose: 4 mg Glimepiride (Amaryl -) 4 mg PO 0700,1630 [facility] Last Admin: 10/06/16 06:11 Dose: Not Given Hydrochlorothiazide (Hctz -) 25 mg PO DAILY [facility] Last Admin: 10/05/16 10:45 Dose: 25 mg Insulin Aspart (Novolog Vial Sliding Scale -) 1 vial SQ TIDAC [facility] PRN Reason: Protocol Last Admin: 10/06/16 06:11 Dose: Not Given Levetiracetam (Keppra -) 500 mg PO BID [facility] Last Admin: 10/05/16 22:56 Dose: Not Given Losartan Potassium (Cozaar -) 100 mg PO DAILY [facility] Last Admin: 10/05/16 10:45 Dose: 100 mg Pantoprazole Sodium (Protonix -) 40 mg PO DAILY [facility] Last Admin: 10/05/16 10:45 Dose: 40 mg - Objective Vital Signs: Vital Signs Temperature 97.6 F 10/06/16 09:12 Pulse Rate 80 10/06/16 09:12 Respiratory Rate 16 10/06/16 09:12 Blood Pressure 137/77 10/06/16 09:12 O2 Sat by Pulse Oximetry (%) 100 10/05/16 12:35 Constitutional: Yes: Mild Distress Eyes: Yes: WNL HENT: Yes: WNL Neck: Yes: WNL Cardiovascular: Yes: WNL Respiratory: Yes: WNL Gastrointestinal: Yes: WNL ...Rectal Exam: Yes: Deferred Genitourinary: Yes: WNL Musculoskeletal: Yes: WNL Extremities: Yes: WNL Edema: No Labs: CBC, BMP 10/05/16 06:30 10/05/16 06:30 INR, PTT INR 1.03 (0.82-1.09) 10/03/16 17:58 Assessment/Plan Plans depends on the bx reports
[2016-10-06 10:09] LABS: BASOPHIL 0.2 % (0-2.0); MCH 28.5 pg (25.7-33.7); MCHC 33.4 g/dl (32.0-35.9); MEAN CELL VOLUME 85.4 fl (80-96); MEAN PLT VOLUME 7.7 fl (7.5-11.1); NEUTROPHILS 86.7 % (42.8-82.8); PLATELET COUNT 243 K/MM3 (134-434); RDW 13.5 % (11.9-15.9); WHITE BLOOD COUNT 11.6 K/mm3 (4.0-10.0)
[2016-10-06 10:17] LABS: INR 1.02 (0.82-1.09); PROTHROMBIN TIME (PATIENT) 11.2 SEC (9.98-11.88)
[2016-10-06 10:20] LABS: ACTIVATED PTT 25.1 SECONDS (26.9-34.4)
[2016-10-06] MEDS ORDERED: INSULIN (NOVOLOG) ASPART 100 UNITS/ML 10ML VIAL ONE (12:11)
[2016-10-06] MEDS: levETIRAcetam 500 MG TABLET (FP) PO SCH ×2 (12:14→22:18)
[2016-10-06] MEDS: LOSARTAN POTASSIUM 50 MG TABLET (FP) PO SCH (12:14)
[2016-10-06] MEDS: CARVEDILOL 25 MG TABLET (FP) PO SCH (12:14)
[2016-10-06] MEDS: HYDROCHLOROTHIAZIDE 25 MG TABLET (FP) PO SCH (12:14)
[2016-10-06] MEDS: PANTOPRAZOLE 40 MG TABLET (FP) PO SCH (12:15)
--- NOTE | 2016-10-06 18:05 | PN ---
Progress Note (short form) - Note Progress Note: PAtient seen and examined Denies any complaints mildly confused Last Vital Signs Temp Pulse Resp BP Pulse Ox 97.5 F L 72 20 114/70 96 10/06/16 13:55 10/06/16 13:55 10/06/16 13:55 10/06/16 13:55 10/06/16 09:00 Cor: RSR, No murmurs, No gallops Lungs: Clear to P&A Abd: Soft, Normal bowel sounds, No organomegaly Ext:No significant edema Skin: No rashes, Integument intact Abnormal Lab Results 10/06/16 10/06/16 09:30 09:30 WBC 11.6 H D Neutrophils % 86.7 H PTT (Actin FS) 25.1 L Current Medications Carvedilol (Coreg -) 25 mg PO DAILY [facility] Last Admin: 10/06/16 12:14 Dose: 25 mg Dexamethasone Sodium Phosphate (Decadron Injection -) 4 mg IVPB Q6H-IV [facility] Last Admin: 10/06/16 15:30 Dose: 4 mg Glimepiride (Amaryl -) 4 mg PO 0700,1630 [facility] Last Admin: 10/06/16 17:16 Dose: 4 mg Hydrochlorothiazide (Hctz -) 25 mg PO DAILY [facility] Last Admin: 10/06/16 12:14 Dose: 25 mg Insulin Aspart (Novolog Vial Sliding Scale -) 1 vial SQ TIDAC [facility] PRN Reason: Protocol Last Admin: 10/06/16 17:16 Dose: 4 units Levetiracetam (Keppra -) 500 mg PO BID [facility] Last Admin: 10/06/16 12:14 Dose: 500 mg Losartan Potassium (Cozaar -) 100 mg PO DAILY [facility] Last Admin: 10/06/16 12:14 Dose: 100 mg Pantoprazole Sodium (Protonix -) 40 mg PO DAILY [facility] Last Admin: 10/06/16 12:15 Dose: 40 mg A/P 76 y/o patient with multiple brain mets. DELMAR lung lesion, mediastinal adenopathy , thickening of colon disucssed with IR s/p ivc filter , given DVT and brain mets to get biopsy of DELMAR lung mass tomorrow---discussed with family, including complications of pneumothorax discussed overall poor prognosis social service worker consult continue decadron/protonix
[2016-10-06] MEDS ORDERED: LORAZEPAM CARPU-JECT 2 MG/ML DISP.SYRIN IVPUSH PRN (23:38)
--- NOTE | 2016-10-06 23:43 | HOSP ---
Subjective - Review of Symptoms Events since last encounter: Was paged by the nurse from 7th floor that patient has been wandering in the [place]. Immediately went to assess the patient. He was lying comfortably in bed. Patient mentioned that he will go home early tomorrow at 9am; his who has alzheimers is at his daughters house and was upset that she couldn't stay with him. Denies chest pain, sob, cough, palpitation, abdominal pain, nausea, vomiting, headache, dizziness, tingling or numbness. As per the nurse, patient mentioned about "pistols" and scared them. However, no intentions to harm himself or anyone. Vitals: BP-142/89mmHg ;P- 109 bpm ; T-97.8F ; RR-16 Physical examination: General: Elderly male, lying comfortably in bed, orientation (unable to obtain as patient didn't want to answer), not in acute distress. HEENT: EOM intact, no pallor or icterus Chest: B/L lungs clear, no added sounds CVS: Regular, s1, s2 no murmur Abdomen: Soft, non tender, no organomegaly. Extremities: Warm, peripheral pulses intact, no peripheral edema. A/P Patient is a 76 year old male HTN, Type II DM, Lung nodule, brain mets was informed patient wandering in the hallway. Confusion most likely due to Brain mets Counseling Ativan 2mg IV Stat PRN Plan of care explained to the patient. He verbalized understanding. Case discussed with Dr. Arellano. Physical Examination Vital Signs: Vital Signs Temperature 97.7 F 10/06/16 18:00 Pulse Rate 69 10/06/16 18:00 Respiratory Rate 18 10/06/16 21:00 Blood Pressure 113/60 10/06/16 18:00 O2 Sat by Pulse Oximetry (%) 96 10/06/16 21:00 Labs: CBC, BMP 10/06/16 09:30 10/05/16 06:30 Visit type - Emergency Visit Emergency Visit: Yes ED Registration Date: 10/03/16 Care time: The patient presented to the Emergency Department on the above date and was hospitalized for further evaluation of their emergent condition. - New Patient This patient is new to me today: Yes Date on this admission: 10/06/16 - Critical Care Critical Care patient: No
[2016-10-07] MEDS: DEXAMETHASONE SOD PHOSPHATE 4 MG/1 ML VIAL IVPB SCH ×4 (02:29→21:14)
[2016-10-07] MEDS: INSULIN SLIDING SCALE (NOVOLOG) 1 VIAL SQ SCH ×3 (06:19→22:09)
[2016-10-07] MEDS: GLIMEPIRIDE 4 MG TABLET (FP) PO SCH ×2 (06:25→16:45)
--- NOTE | 2016-10-07 09:47 | PN ---
Progress Note, Physician Chief Complaint: Was confused last night History of Present Illness: Brain mets ,DVT S/P IVC filter - Current Medication List Current Medications: Active Medications Carvedilol (Coreg -) 25 mg PO DAILY [facility] Last Admin: 10/06/16 12:14 Dose: 25 mg Dexamethasone Sodium Phosphate (Decadron Injection -) 4 mg IVPB Q6H-IV [facility] Last Admin: 10/07/16 09:09 Dose: 4 mg Glimepiride (Amaryl -) 4 mg PO 0700,1630 [facility] Last Admin: 10/07/16 06:25 Dose: Not Given Hydrochlorothiazide (Hctz -) 25 mg PO DAILY [facility] Last Admin: 10/06/16 12:14 Dose: 25 mg Insulin Aspart (Novolog Vial Sliding Scale -) 1 vial SQ TIDAC [facility] PRN Reason: Protocol Last Admin: 10/07/16 06:19 Dose: 8 units Levetiracetam (Keppra -) 500 mg PO BID [facility] Last Admin: 10/06/16 22:18 Dose: 500 mg Losartan Potassium (Cozaar -) 100 mg PO DAILY [facility] Last Admin: 10/06/16 12:14 Dose: 100 mg Pantoprazole Sodium (Protonix -) 40 mg PO DAILY [facility] Last Admin: 10/06/16 12:15 Dose: 40 mg - Objective Vital Signs: Vital Signs Temperature 98.1 F 10/07/16 05:57 Pulse Rate 80 10/07/16 05:57 Respiratory Rate 18 10/07/16 05:57 Blood Pressure 151/77 10/07/16 05:57 O2 Sat by Pulse Oximetry (%) 96 10/06/16 21:00 Constitutional: Yes: Anxious Eyes: Yes: WNL HENT: Yes: WNL Neck: Yes: WNL Cardiovascular: Yes: WNL Respiratory: Yes: WNL Gastrointestinal: Yes: WNL ...Rectal Exam: Yes: WNL Genitourinary: Yes: WNL Musculoskeletal: Yes: WNL Edema: Yes Edema: RLE: 2+ Integumentary: Yes: WNL Neurological: Yes: Confusion Labs: CBC, BMP 10/06/16 09:30 10/05/16 06:30 INR, PTT INR 1.02 (0.82-1.09) 10/06/16 09:30 Fibrinogen 262.0 mg/dL (238-498) 10/06/16 09:30 Assessment/Plan Cleared for lung biopsy
[2016-10-07] MEDS: HYDROCHLOROTHIAZIDE 25 MG TABLET (FP) PO SCH (11:23)
[2016-10-07] MEDS: LOSARTAN POTASSIUM 50 MG TABLET (FP) PO SCH (11:23)
[2016-10-07] MEDS: PANTOPRAZOLE 40 MG TABLET (FP) PO SCH (11:23)
[2016-10-07] MEDS: levETIRAcetam 500 MG TABLET (FP) PO SCH ×2 (11:23→21:14)
[2016-10-07] MEDS: CARVEDILOL 25 MG TABLET (FP) PO SCH (11:23)
[2016-10-07] MEDS ORDERED: PT OWN MED DRAWER 7, Y5N ONE ×2 (11:39→13:21)
--- NOTE | 2016-10-07 12:58 | PN ---
Progress Note (short form) - Note Progress Note: Patient seen and examined S/P biopsy Denies complaints of headaches, SOB, dyspnea, cough, sputum, GI complaints of nausea, emesis, diarrhea, constipation, dysuria, back or bone pain. Last Vital Signs Temp Pulse Resp BP Pulse Ox 97.7 F 72 14 167/95 98 10/07/16 08:00 10/07/16 10:39 10/07/16 10:39 10/07/16 10:39 10/07/16 10:39 HEENT: NEDRA, EOM Intact Oropharynx: No thrush, No mucositis Cor: RSR, No murmurs, No gallops Lungs: Clear to P&A Abd: Soft, Normal bowel sounds, No organomegaly Ext:No significant edema Skin: No rashes, Integument intact CBC, BMP 10/06/16 09:30 10/05/16 06:30 Current Medications Generic Name Dose Route Start Last Admin Trade Name Freq PRN Reason Stop Dose Admin Carvedilol 25 mg 10/04/16 10:00 10/07/16 11:23 Coreg - PO 25 mg DAILY [facility] Administration Dexamethasone Sodium Phosphate 4 mg 10/04/16 03:00 10/07/16 09:09 Decadron Injection - IVPB 4 mg Q6H-IV [facility] Administration Glimepiride 4 mg 10/04/16 10:00 10/07/16 06:25 Amaryl - PO Not Given 0700,1630 [facility] Hydrochlorothiazide 25 mg 10/04/16 10:00 10/07/16 11:23 Hctz - PO 25 mg DAILY [facility] Administration Insulin Aspart 1 vial 10/04/16 16:30 10/07/16 11:27 Novolog Vial Sliding Scale - SQ 4 units TIDAC [facility] Administration Protocol Levetiracetam 500 mg 10/03/16 22:00 10/07/16 11:23 Keppra - PO 500 mg BID [facility] Administration Losartan Potassium 100 mg 10/04/16 10:00 10/07/16 11:23 Cozaar - PO 100 mg DAILY [facility] Administration Pantoprazole Sodium 40 mg 10/04/16 10:00 10/07/16 11:23 Protonix - PO 40 mg DAILY [facility] Administration Impression: Brain mets ? primary S/P lung biopsy
[2016-10-07] MEDS ORDERED: INSULIN (NOVOLOG) ASPART 100 UNITS/ML 10ML VIAL ONE (13:01)
[2016-10-08] MEDS ORDERED: LORAZEPAM CARPU-JECT 2 MG/ML DISP.SYRIN IVPUSH ONE (02:05)
[2016-10-08] MEDS: DEXAMETHASONE SOD PHOSPHATE 4 MG/1 ML VIAL IVPB SCH ×4 (02:22→21:34)
[2016-10-08] MEDS: GLIMEPIRIDE 4 MG TABLET (FP) PO SCH ×2 (06:35→18:20)
[2016-10-08] MEDS: INSULIN SLIDING SCALE (NOVOLOG) 1 VIAL SQ SCH ×4 (07:04→18:21)
--- NOTE | 2016-10-08 09:15 | PN ---
Progress Note, Physician Chief Complaint: S/P lung biopsy and chest tube insertion Confused History of Present Illness: S/P lung biopsy and chest tube insertion - Current Medication List Current Medications: Active Medications Carvedilol (Coreg -) 25 mg PO DAILY [facility] Last Admin: 10/07/16 11:23 Dose: 25 mg Dexamethasone Sodium Phosphate (Decadron Injection -) 4 mg IVPB Q6H-IV [facility] Last Admin: 10/08/16 02:22 Dose: Not Given Glimepiride (Amaryl -) 4 mg PO 0700,1630 [facility] Last Admin: 10/08/16 06:35 Dose: Not Given Hydrochlorothiazide (Hctz -) 25 mg PO DAILY [facility] Last Admin: 10/07/16 11:23 Dose: 25 mg Insulin Aspart (Novolog Vial Sliding Scale -) 1 vial SQ TIDAC [facility] PRN Reason: Protocol Last Admin: 10/08/16 07:13 Dose: 4 units Levetiracetam (Keppra -) 500 mg PO BID [facility] Last Admin: 10/07/16 21:14 Dose: 500 mg Losartan Potassium (Cozaar -) 100 mg PO DAILY [facility] Last Admin: 10/07/16 11:23 Dose: 100 mg Pantoprazole Sodium (Protonix -) 40 mg PO DAILY [facility] Last Admin: 10/07/16 11:23 Dose: 40 mg - Objective Vital Signs: Vital Signs Temperature 97.7 F 10/08/16 05:00 Pulse Rate 67 10/08/16 05:00 Respiratory Rate 18 10/08/16 05:00 Blood Pressure 140/67 10/08/16 05:00 O2 Sat by Pulse Oximetry (%) 97 10/07/16 21:00 Constitutional: Yes: Moderate Distress Eyes: Yes: WNL HENT: Yes: WNL Neck: Yes: WNL Cardiovascular: Yes: WNL Respiratory: Yes: WNL Gastrointestinal: Yes: WNL ...Rectal Exam: Yes: Deferred Genitourinary: Yes: WNL Breast(s): Yes: WNL Musculoskeletal: Yes: WNL Edema: Yes Integumentary: Yes: WNL Neurological: Yes: Confusion Labs: CBC, BMP 10/06/16 09:30 10/05/16 06:30 INR, PTT INR 1.02 (0.82-1.09) 10/06/16 09:30 Fibrinogen 262.0 mg/dL (238-498) 10/06/16 09:30 [facility]
--- NOTE | 2016-10-08 10:08 | PN ---
Progress Note (short form) - Note Progress Note: NEUROSURGERY No H/A, N/V Wants to go home S/p IVC filter then L lung Bx PE: AF, VSS HEENT- NC/AT; Neck- supple; Cor- RR; Lungs- CTA; Abd- mildly distended, + BS; Ext- edema and chronic venous changes R > L distal LE; stable A/A/Ox3, speech fluent Lying down in bed CN- intact II-XII; Motor- 5/5 without drift; Sensation- intact LT/vibration; DTR -1+; B toes upgoing; Cerebellar- intact B FTN Multifocal brain mets Keppra for sz prophylaxis R LE DVT, s/p IVC filter; leg elevation when on bed Path pending No neurosurgical intervention recommended Baseline rad onc input -d/w Dr Everett earlier
[2016-10-08] MEDS: levETIRAcetam 500 MG TABLET (FP) PO SCH ×2 (10:46→21:34)
[2016-10-08] MEDS: PANTOPRAZOLE 40 MG TABLET (FP) PO SCH (10:46)
[2016-10-08] MEDS: CARVEDILOL 25 MG TABLET (FP) PO SCH (10:46)
[2016-10-08] MEDS: HYDROCHLOROTHIAZIDE 25 MG TABLET (FP) PO SCH (10:50)
[2016-10-08] MEDS: LOSARTAN POTASSIUM 50 MG TABLET (FP) PO SCH (10:50)
--- NOTE | 2016-10-08 12:46 | PN ---
Progress Note (short form) - Note Progress Note: Radiation Oncology: Patient seen and examined. I also spoke with his daughter. Consult dictated.
--- NOTE | 2016-10-08 14:06 | CONS ---
DATE OF CONSULTATION: 10/08/2016 TIME: 12:47 p.m. DIAGNOSIS: Lung cancer with brain metastasis. HISTORY OF PRESENT ILLNESS: Patient is a 76-year-old man who has had subtle symptoms for several months, including blurred vision and a 20 pound weight loss. He also reports a long-term history of change in taste and a loss of appetite. The loss of appetite was first noted about 6 months ago. He was seen recently by an public policy mediator and referred him to the hospital where a brain MRI showed multiple brain metastasis. He also had a chest x-ray on October 03, the same day, which showed some cardiomegaly. CAT scan on October 04 of the chest, abdomen and pelvis showed no gross hilar lymph nodes, but there was a large left superior mediastinal lymph node 2.2 cm, a left aortopulmonary window lymph node 2.3 cm and a right paratracheal lymph node and a 1.6 cm pulmonary nodule. Abdomen showed diverticulosis and status post cholecystectomy and some renal cysts. PAST MEDICAL HISTORY: He is a diabetic. He also has heart disease. He was seeing a urologist for some prostatic symptoms. SOCIAL HISTORY: He stopped smoking about 30-40 years ago, but smoked for about 20 years, starting in his teens. He denies any alcohol or drugs. FAMILY HISTORY: He has 3 sisters. One is alive at 94, 2 are , 1 from a stroke and a distant history of cancer and 1 from heart disease. His parents are . His mother from cancer. Father unknown causes. ALLERGIES: None. MEDICATIONS: He is on: 1. Carvedilol. 2. Glimepiride. 3. Hydrochlorothiazide. 4. Losartan. 5. Metformin. PHYSICAL EXAMINATION: Vitals: A blood pressure of 140/67, pulse of 91, respiratory rate of 18. His temperature is 97.7 degrees Fahrenheit. HEENT: Face is symmetric. Tongue is midline. He has his own teeth. No adenopathy in the neck, axilla, or groin. Heart: Normal heart sounds are present. Lungs: Clear. Abdomen: Soft. Neurologic: He has blurred vision and actually double vision when on visual field testing, particularly when looking up and looking to the left and looking down he sees either double the number of fingers, or blurred fingers. He has a full field of vision and he has 5/5 strength in all of his extremities. He has normal proprioception of his toes. No back tenderness noted. IMPRESSION/PLAN: I reviewed the MRI of his brain. I spoke with his daughter and discussed risks and benefits of radiation. I recommend palliative whole brain radiation therapy. The biopsy result is not in, but I will talk with his oncologist on Monday. I called Dr. Nielson, his primary care doctor , and spoke with him today. ZAID ANGUIANO M.D. TESSY/[id number] MTDD
--- NOTE | 2016-10-08 14:11 | PN ---
Progress Note (short form) - Note Progress Note: Patient seen and examined No headache, diplopia No chest pain, SOB, dyspnea Last Vital Signs Temp Pulse Resp BP Pulse Ox 97.7 F 67 18 140/67 97 10/08/16 05:00 10/08/16 05:00 10/08/16 05:00 10/08/16 05:00 10/07/16 21:00 HEENT: NEDRA, EOM Intact Oropharynx: No thrush, No mucositis Cor: RSR, No murmurs, No gallops Lungs:left chest tube Abd: Soft, Normal bowel sounds, No organomegaly Ext:No significant edema Skin: No rashes, Integument intact Current Medications Generic Name Dose Route Start Last Admin Trade Name Freq PRN Reason Stop Dose Admin Carvedilol 25 mg 10/04/16 10:00 10/08/16 10:46 Coreg - PO 25 mg DAILY [facility] Administration Dexamethasone Sodium Phosphate 4 mg 10/04/16 03:00 10/08/16 10:46 Decadron Injection - IVPB 4 mg Q6H-IV [facility] Administration Glimepiride 4 mg 10/04/16 10:00 10/08/16 06:35 Amaryl - PO Not Given 0700,1630 [facility] Hydrochlorothiazide 25 mg 10/04/16 10:00 10/08/16 10:50 Hctz - PO 25 mg DAILY [facility] Administration Insulin Aspart 1 vial 10/04/16 16:30 10/08/16 07:13 Novolog Vial Sliding Scale - SQ 4 units TIDAC [facility] Administration Protocol Levetiracetam 500 mg 10/03/16 22:00 10/08/16 10:46 Keppra - PO 500 mg BID [facility] Administration Lorazepam 2 mg 10/08/16 09:15 Ativan Injection - IVPUSH TID PRN ANXIETY Losartan Potassium 100 mg 10/04/16 10:00 10/08/16 10:50 Cozaar - PO 100 mg DAILY [facility] Administration Pantoprazole Sodium 40 mg 10/04/16 10:00 10/08/16 10:46 Protonix - PO 40 mg DAILY [facility] Administration 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
[2016-10-08] MEDS ORDERED: PT OWN MED DRAWER 7, Y5N ONE (18:13)
[2016-10-09] MEDS: DEXAMETHASONE SOD PHOSPHATE 4 MG/1 ML VIAL IVPB SCH ×4 (03:39→22:00)
[2016-10-09] MEDS ORDERED: PT OWN MED DRAWER 7, Y5N ONE (04:13)
[2016-10-09] MEDS: INSULIN SLIDING SCALE (NOVOLOG) 1 VIAL SQ SCH ×4 (06:08→17:19)
[2016-10-09] MEDS: GLIMEPIRIDE 4 MG TABLET (FP) PO SCH ×2 (06:09→17:20)
[2016-10-09] MEDS: LORAZEPAM CARPU-JECT 2 MG/ML DISP.SYRIN IVPUSH PRN ×2 (08:02→22:00)
--- NOTE | 2016-10-09 09:33 | PN ---
Progress Note (short form) - Note Progress Note: NEUROSURGERY No H/A, N/V Wants to go home PE: AF, VSS HEENT- NC/AT; Neck- supple; Cor- RR; Lungs- CTA; Abd- mildly distended, + BS; Ext- edema and chronic venous changes R > L distal LE; stable A/A/Ox3, speech fluent Sitting up in chair CN- intact II-XII; Motor- 5/5 without drift; Sensation- intact LT/vibration; DTR -1+; B toes upgoing; Cerebellar- intact B FTN CXR- L apical ptx Multifocal brain mets Keppra for sz prophylaxis R LE DVT, s/p IVC filter; leg elevation when on bed Path pending No neurosurgical intervention recommended for multifocal intracranial lesions Rad onc input noted
--- NOTE | 2016-10-09 10:49 | PN ---
Progress Note, Physician Chief Complaint: Wants go home History of Present Illness: Admitted with brain mets,primary possible in lung .S/P biopsy - Current Medication List Current Medications: Active Medications Carvedilol (Coreg -) 25 mg PO DAILY [facility] Last Admin: 10/08/16 10:46 Dose: 25 mg Dexamethasone Sodium Phosphate (Decadron Injection -) 4 mg IVPB Q6H-IV [facility] Last Admin: 10/09/16 09:12 Dose: 4 mg Glimepiride (Amaryl -) 4 mg PO 0700,1630 [facility] Last Admin: 10/09/16 06:09 Dose: 4 mg Hydrochlorothiazide (Hctz -) 25 mg PO DAILY [facility] Last Admin: 10/08/16 10:50 Dose: 25 mg Insulin Aspart (Novolog Vial Sliding Scale -) 1 vial SQ TIDAC [facility] PRN Reason: Protocol Last Admin: 10/09/16 06:08 Dose: 4 units Levetiracetam (Keppra -) 500 mg PO BID [facility] Last Admin: 10/08/16 21:34 Dose: 500 mg Lorazepam (Ativan Injection -) 2 mg IVPUSH TID PRN PRN Reason: ANXIETY Last Admin: 10/09/16 08:02 Dose: 2 mg Losartan Potassium (Cozaar -) 100 mg PO DAILY [facility] Last Admin: 10/08/16 10:50 Dose: 100 mg Pantoprazole Sodium (Protonix -) 40 mg PO DAILY [facility] Last Admin: 10/08/16 10:46 Dose: 40 mg - Objective Vital Signs: Vital Signs Temperature 97.7 F 10/09/16 06:00 Pulse Rate 71 10/09/16 06:00 Respiratory Rate 18 10/09/16 06:00 Blood Pressure 147/71 10/09/16 06:00 O2 Sat by Pulse Oximetry (%) 97 10/08/16 21:00 Constitutional: Yes: Anxious Eyes: Yes: WNL HENT: Yes: WNL Neck: Yes: WNL Cardiovascular: Yes: WNL Respiratory: Yes: Other (chest tube in place) ...Rectal Exam: Yes: Deferred Genitourinary: Yes: WNL Extremities: Yes: WNL Edema: Yes Edema: RLE: Trace Neurological: Yes: Alert Labs: CBC, BMP 10/06/16 09:30 10/05/16 06:30 INR, PTT INR 1.02 (0.82-1.09) 10/06/16 09:30 Fibrinogen 262.0 mg/dL (238-498) 10/06/16 09:30 Assessment/Plan Path report pending
[2016-10-09] MEDS ORDERED: INSULIN (NOVOLOG) ASPART 100 UNITS/ML 10ML VIAL ONE (11:19)
[2016-10-09] MEDS: CARVEDILOL 25 MG TABLET (FP) PO SCH (11:21)
[2016-10-09] MEDS: PANTOPRAZOLE 40 MG TABLET (FP) PO SCH (11:21)
[2016-10-09] MEDS: LOSARTAN POTASSIUM 50 MG TABLET (FP) PO SCH (11:21)
[2016-10-09] MEDS: levETIRAcetam 500 MG TABLET (FP) PO SCH ×2 (11:21→22:00)
[2016-10-09] MEDS: HYDROCHLOROTHIAZIDE 25 MG TABLET (FP) PO SCH (11:21)
--- NOTE | 2016-10-09 12:01 | PN ---
Progress Note (short form) - Note Progress Note: Patient seen and examined Angry about length of stay in hospital Will follow up Chest X-ray Denies chest pains, SOB, dyspnea, headache Last Vital Signs Temp Pulse Resp BP Pulse Ox 97.8 F 68 18 135/70 97 10/09/16 10:00 10/09/16 10:00 10/09/16 10:00 10/09/16 10:00 10/08/16 21:00 HEENT: NEDRA, EOM Intact Oropharynx: No thrush, No mucositis Cor: RSR, No murmurs, No gallops Lungs: Clear to P&A Abd: Soft, Normal bowel sounds, No organomegaly Ext:No significant edema Skin: No rashes, Integument intact CBC, BMP 10/06/16 09:30 10/05/16 06:30 Current Medications Generic Name Dose Route Start Last Admin Trade Name Freq PRN Reason Stop Dose Admin Carvedilol 25 mg 10/04/16 10:00 10/09/16 11:21 Coreg - PO 25 mg DAILY [facility] Administration Dexamethasone Sodium Phosphate 4 mg 10/04/16 03:00 10/09/16 09:12 Decadron Injection - IVPB 4 mg Q6H-IV [facility] Administration Glimepiride 4 mg 10/04/16 10:00 10/09/16 06:09 Amaryl - PO 4 mg 0700,1630 [facility] Administration Hydrochlorothiazide 25 mg 10/04/16 10:00 10/09/16 11:21 Hctz - PO 25 mg DAILY [facility] Administration Insulin Aspart 1 vial 10/04/16 16:30 10/09/16 11:32 Novolog Vial Sliding Scale - SQ 12 units TIDAC [facility] Administration Protocol Levetiracetam 500 mg 10/03/16 22:00 10/09/16 11:21 Keppra - PO 500 mg BID [facility] Administration Lorazepam 2 mg 10/08/16 09:15 10/09/16 08:02 Ativan Injection - IVPUSH 2 mg TID PRN Administration ANXIETY Losartan Potassium 100 mg 10/04/16 10:00 10/09/16 11:21 Cozaar - PO 100 mg DAILY [facility] Administration Pantoprazole Sodium 40 mg 10/04/16 10:00 10/09/16 11:21 Protonix - PO 40 mg DAILY [facility] Administration Impression: Presumed brain mets S/P lung biopsy Pneumothorax Plan: F/U X-ray Await path.
[2016-10-10] MEDS: DEXAMETHASONE SOD PHOSPHATE 4 MG/1 ML VIAL IVPB SCH ×4 (02:19→21:00)
[2016-10-10] MEDS ORDERED: PT OWN MED DRAWER 7, Y5N ONE (05:39)
[2016-10-10] MEDS: GLIMEPIRIDE 4 MG TABLET (FP) PO SCH ×2 (06:05→17:01)
[2016-10-10] MEDS: INSULIN SLIDING SCALE (NOVOLOG) 1 VIAL SQ SCH ×4 (06:05→17:03)
--- NOTE | 2016-10-10 08:49 | PN ---
Progress Note (short form) - Note Progress Note: NEUROSURGERY Impatient about hospital stay No H/A, N/V, Sz PE: AF, VSS HEENT- NC/AT; Neck- supple; Cor- RR; Lungs- CTA; Abd- mildly distended, + BS; Ext- edema and chronic venous changes R > L distal LE; stable A/A/Ox3, speech fluent Chest tube with no air leak CN- intact II-XII; Motor- 5/5 without drift; Sensation- intact LT/vibration; DTR -1+; B toes upgoing; Cerebellar- intact B FTN CXR- small residual L apical ptx Multifocal brain mets Keppra for sz prophylaxis R LE DVT, s/p IVC filter Path still pending - adjuvant tx to follow No neurosurgical intervention recommended for multifocal intracranial lesions
[2016-10-10] MEDS: PANTOPRAZOLE 40 MG TABLET (FP) PO SCH (09:27)
[2016-10-10] MEDS: HYDROCHLOROTHIAZIDE 25 MG TABLET (FP) PO SCH (09:27)
[2016-10-10] MEDS: LOSARTAN POTASSIUM 50 MG TABLET (FP) PO SCH (09:27)
[2016-10-10] MEDS: levETIRAcetam 500 MG TABLET (FP) PO SCH ×2 (09:27→22:00)
[2016-10-10] MEDS: CARVEDILOL 25 MG TABLET (FP) PO SCH (09:27)
--- NOTE | 2016-10-10 09:28 | PN ---
Progress Note, Physician Chief Complaint: Wants to go home History of Present Illness: Xray chest minimal pneumothorax present Bx report pending - Current Medication List Current Medications: Active Medications Carvedilol (Coreg -) 25 mg PO DAILY [facility] Last Admin: 10/09/16 11:21 Dose: 25 mg Dexamethasone Sodium Phosphate (Decadron Injection -) 4 mg IVPB Q6H-IV [facility] Last Admin: 10/10/16 02:19 Dose: 4 mg Glimepiride (Amaryl -) 4 mg PO 0700,1630 [facility] Last Admin: 10/10/16 06:05 Dose: 4 mg Hydrochlorothiazide (Hctz -) 25 mg PO DAILY [facility] Last Admin: 10/09/16 11:21 Dose: 25 mg Insulin Aspart (Novolog Vial Sliding Scale -) 1 vial SQ TIDAC [facility] PRN Reason: Protocol Last Admin: 10/10/16 06:05 Dose: 8 units Levetiracetam (Keppra -) 500 mg PO BID [facility] Last Admin: 10/09/16 22:00 Dose: 500 mg Lorazepam (Ativan Injection -) 2 mg IVPUSH TID PRN PRN Reason: ANXIETY Last Admin: 10/09/16 22:00 Dose: 2 mg Losartan Potassium (Cozaar -) 100 mg PO DAILY [facility] Last Admin: 10/09/16 11:21 Dose: 100 mg Pantoprazole Sodium (Protonix -) 40 mg PO DAILY [facility] Last Admin: 10/09/16 11:21 Dose: 40 mg - Objective Vital Signs: Vital Signs Temperature 97.5 F L 10/10/16 06:00 Pulse Rate 62 10/10/16 06:00 Respiratory Rate 20 10/10/16 06:00 Blood Pressure 106/72 10/10/16 06:00 O2 Sat by Pulse Oximetry (%) 99 10/09/16 09:00 Constitutional: Yes: Anxious Eyes: Yes: WNL HENT: Yes: WNL Neck: Yes: WNL Cardiovascular: Yes: WNL Respiratory: Yes: WNL Gastrointestinal: Yes: WNL ...Rectal Exam: Yes: Deferred Genitourinary: Yes: WNL Labs: CBC, BMP 10/06/16 09:30 10/05/16 06:30 INR, PTT INR 1.02 (0.82-1.09) 10/06/16 09:30 Fibrinogen 262.0 mg/dL (238-498) 10/06/16 09:30
[2016-10-10] MEDS: LORAZEPAM CARPU-JECT 2 MG/ML DISP.SYRIN IVPUSH PRN (18:15)
--- NOTE | 2016-10-10 19:57 | PN ---
Progress Note (short form) - Note Progress Note: PAtient seen and examined Denies any complaints mildly confused Last Vital Signs Temp Pulse Resp BP Pulse Ox 97.9 F 75 20 117/60 99 10/10/16 18:04 10/10/16 18:04 10/10/16 18:04 10/10/16 18:04 10/10/16 09:00 Cor: RSR, No murmurs, No gallops Lungs: Clear to P&A Abd: Soft, Normal bowel sounds, No organomegaly Ext:No significant edema Skin: No rashes, Integument intact Current Medications Carvedilol (Coreg -) 25 mg PO DAILY [facility] Last Admin: 10/10/16 09:27 Dose: 25 mg Dexamethasone Sodium Phosphate (Decadron Injection -) 4 mg IVPB Q6H-IV [facility] Last Admin: 10/10/16 17:01 Dose: 4 mg Glimepiride (Amaryl -) 4 mg PO 0700,1630 [facility] Last Admin: 10/10/16 17:01 Dose: 4 mg Hydrochlorothiazide (Hctz -) 25 mg PO DAILY [facility] Last Admin: 10/10/16 09:27 Dose: 25 mg Insulin Aspart (Novolog Vial Sliding Scale -) 1 vial SQ TIDAC [facility] PRN Reason: Protocol Last Admin: 10/10/16 17:03 Dose: 8 units Levetiracetam (Keppra -) 500 mg PO BID [facility] Last Admin: 10/10/16 09:27 Dose: 500 mg Lorazepam (Ativan Injection -) 2 mg IVPUSH TID PRN PRN Reason: ANXIETY Last Admin: 10/10/16 18:15 Dose: 2 mg Losartan Potassium (Cozaar -) 100 mg PO DAILY [facility] Last Admin: 10/10/16 09:27 Dose: 100 mg Pantoprazole Sodium (Protonix -) 40 mg PO DAILY [facility] Last Admin: 10/10/16 09:27 Dose: 40 mg A/P 76 y/o patient with multiple brain mets. DELMAR lung lesion, mediastinal adenopathy , thickening of colon s/p ivc filter , given DVT and brain mets s/p biopsy of DELMAR lung mass awaiting pathology small pneumothorax continue decadron/protonix discussed with family
[2016-10-11] MEDS: DEXAMETHASONE SOD PHOSPHATE 4 MG/1 ML VIAL IVPB SCH ×4 (04:00→22:57)
[2016-10-11] MEDS: GLIMEPIRIDE 4 MG TABLET (FP) PO SCH ×2 (06:45→17:27)
[2016-10-11] MEDS ORDERED: PT OWN MED DRAWER 7, Y5N ONE ×3 (07:09→17:04)
--- NOTE | 2016-10-11 08:02 | PN ---
Progress Note (short form) - Note Progress Note: NEUROSURGERY Up at bedside No H/A, N/V No C/P, dyspnea PE: AF, VSS HEENT- NC/AT; Neck- supple; Cor- RR; Lungs- CTA; Abd- mildly distended, + BS; Ext- edema and chronic venous changes R > L distal LE; stable A/A/Ox2, speech fluent Chest tube out CN- intact II-XII; Motor- 5/5 without drift; Sensation- intact LT/vibration; DTR -1+; B toes upgoing; Cerebellar- intact B FTN Multifocal brain mets Cont Keppra R LE DVT, s/p IVC filter Path pending - adjuvant tx to follow per oncology
[2016-10-11] MEDS: INSULIN SLIDING SCALE (NOVOLOG) 1 VIAL SQ SCH ×3 (08:14→17:27)
[2016-10-11] MEDS: levETIRAcetam 500 MG TABLET (FP) PO SCH ×2 (09:00→22:57)
[2016-10-11] MEDS: CARVEDILOL 25 MG TABLET (FP) PO SCH (09:00)
[2016-10-11] MEDS: LOSARTAN POTASSIUM 50 MG TABLET (FP) PO SCH (09:00)
[2016-10-11] MEDS: HYDROCHLOROTHIAZIDE 25 MG TABLET (FP) PO SCH (09:00)
[2016-10-11] MEDS: PANTOPRAZOLE 40 MG TABLET (FP) PO SCH (09:00)
--- NOTE | 2016-10-11 09:39 | PN ---
Progress Note, Physician Chief Complaint: Patient is irritable wants to go home denies any head ache, nausea, vomiting History of Present Illness: 76 yrs old man with H/O HTN, T2DM admitted with blurring of vision with Brain mets w/u shows Multipple brain mets, Left Lung mass and RT LE DVT s/p IVC filter and Left Lung mass Biopsy. - Current Medication List Current Medications: Active Medications Carvedilol (Coreg -) 25 mg PO DAILY [facility] Last Admin: 10/11/16 09:00 Dose: 25 mg Dexamethasone Sodium Phosphate (Decadron Injection -) 4 mg IVPB Q6H-IV [facility] Last Admin: 10/11/16 09:00 Dose: 4 mg Glimepiride (Amaryl -) 4 mg PO 0700,1630 [facility] Last Admin: 10/11/16 06:45 Dose: 4 mg Hydrochlorothiazide (Hctz -) 25 mg PO DAILY [facility] Last Admin: 10/11/16 09:00 Dose: 25 mg Insulin Aspart (Novolog Vial Sliding Scale -) 1 vial SQ TIDAC [facility] PRN Reason: Protocol Last Admin: 10/11/16 08:14 Dose: 12 units Levetiracetam (Keppra -) 500 mg PO BID [facility] Last Admin: 10/11/16 09:00 Dose: 500 mg Losartan Potassium (Cozaar -) 100 mg PO DAILY [facility] Last Admin: 10/11/16 09:00 Dose: 100 mg Pantoprazole Sodium (Protonix -) 40 mg PO DAILY [facility] Last Admin: 10/11/16 09:00 Dose: 40 mg - Objective Vital Signs: Vital Signs Temperature 97.4 F L 10/11/16 06:00 Pulse Rate 72 10/11/16 06:00 Respiratory Rate 20 10/11/16 06:00 Blood Pressure 120/64 10/11/16 06:00 O2 Sat by Pulse Oximetry (%) 99 10/10/16 21:00 Constitutional: Yes: Well Nourished, No Distress, Anxious, Thin Eyes: Yes: WNL HENT: Yes: WNL, Atraumatic, Normocephalic Neck: Yes: WNL, Supple, Trachea Midline Cardiovascular: Yes: Regular Rate and Rhythm, Pulse Irregular Respiratory: Yes: WNL, CTA Bilaterally, Other (Left sided Basal crepts s/p Chest tube removal) Gastrointestinal: Yes: WNL, Normal Bowel Sounds, Soft ...Rectal Exam: Yes: Deferred Genitourinary: Yes: WNL Musculoskeletal: Yes: WNL (Rt Le swelling with Venous stasis cahnges) Edema: Yes Edema: RLE: 1+ Peripheral Pulses: Left Radial: 2+, Right Radial: 2+, Left Doralis Pedis: 2+, Right Dorsalis Pedis: 2+, Left Femoral: 2+, Right Femoral: 2+ Integumentary: Yes: Venous Stasis Changes (Rt LE) Neurological: Yes: Alert, Confusion ...Motor Strength: WNL Psychiatric: Yes: Agitated Labs: CBC, BMP 10/06/16 09:30 10/05/16 06:30 INR, PTT INR 1.02 (0.82-1.09) 10/06/16 09:30 Fibrinogen 262.0 mg/dL (238-498) 10/06/16 09:30 - ....Imaging X-ray: Pending ( Post Chest tube removal) Problem List - Problems (1) Brain metastases Code(s): C79.31 - SECONDARY MALIGNANT NEOPLASM OF BRAIN (2) Blurry vision, bilateral Code(s): H53.8 - OTHER VISUAL DISTURBANCES (3) HTN (hypertension) Code(s): I10 - ESSENTIAL (PRIMARY) HYPERTENSION (4) Diabetes mellitus Code(s): E11.9 - TYPE 2 DIABETES MELLITUS WITHOUT COMPLICATIONS Qualifiers: Diabetes mellitus type: type 2 Diabetes mellitus complication status: without complication (5) Deep vein blood clot of right lower extremity Code(s): I82.401 - ACUTE EMBOLISM AND THOMBOS UNSP DEEP VEINS OF R LOW EXTREM Qualifiers: Affected thrombotic vein of extremity: femoral Chronicity: acute Qualified Code(s): I82.411 - Acute embolism and thrombosis of right femoral vein (6) Pulmonary nodule Code(s): R91.1 - SOLITARY PULMONARY NODULE (7) Colonic thickening Code(s): K63.9 - DISEASE OF INTESTINE, UNSPECIFIED Assessment/Plan Brain Mets: on Dexamethasone and PPI F/U Neuro surgery recommendations, on Keppra.. Left UL Mass; s/P Biopsy, result awaited Left Pneumothorax ; after Biopsy s/p Chest tube tube removed yesterday F/U Clinically and chest X ray. Rt LE DVT: On IVC filter due to Brain Mets HTN: Well controlled cont home meds T2DM: Poorly controlled optimize Glycemic control. Agitation; Due to Brain mets and Dexamethasone on PRN lorazepalm. Quality Measures-Exclusions - VTE Prophylaxis Contraindications to VTE Prophylaxis: Surgical Contraindication Reason for no overlap anticoagulant Rx: Surgical Contraindication (Brain mets s/ p IVC filter)
--- NOTE | 2016-10-11 10:37 | PN ---
Progress Note (short form) - Note Progress Note: Rad Onc Chart and films reviewed. Impatient to go home. Denies h/a, n/v, SOB, CP. Has been ambulating. Diplopia on exam. MRI shows multiple bilateral brain mets with edema. s/p IVC for LE DVT s/p lung bx, chest tube for post bx PTX. Discussed w pathology, bx+ necrotic tumor, stains are pending. F/U CXR. Rec cont decadron and whole brain RT. If remains neurologically stable may proceed w treatment as outpatient.
--- NOTE | 2016-10-11 15:54 | PN ---
Progress Note (short form) - Note Progress Note: Patient seen and examined Discussed with path - necrotic biopsy special stains to be performed. Last Vital Signs Temp Pulse Resp BP Pulse Ox 98.2 F 74 18 111/53 99 10/11/16 15:02 10/11/16 15:02 10/11/16 15:02 10/11/16 15:02 10/11/16 09:10 HEENT: NEDRA, EOM Intact Oropharynx: No thrush, No mucositis Neck: Supple Cor: RSR, No murmurs, No gallops Lungs: Clear to P&A Abd: Soft, Normal bowel sounds, No organomegaly Ext:No significant edema Skin: No rashes, Integument intact CBC, BMP 10/06/16 09:30 10/05/16 06:30 Current Medications Generic Name Dose Route Start Last Admin Trade Name Jean-Pierreq PRN Reason Stop Dose Admin Carvedilol 25 mg 10/04/16 10:00 10/11/16 09:00 Coreg - PO 25 mg DAILY [facility] Administration Dexamethasone Sodium Phosphate 4 mg 10/04/16 03:00 10/11/16 14:41 Decadron Injection - IVPB 4 mg Q6H-IV [facility] Administration Glimepiride 4 mg 10/04/16 10:00 10/11/16 06:45 Amaryl - PO 4 mg 0700,1630 [facility] Administration Hydrochlorothiazide 25 mg 10/04/16 10:00 10/11/16 09:00 Hctz - PO 25 mg DAILY [facility] Administration Insulin Aspart 1 vial 10/04/16 16:30 10/11/16 12:12 Novolog Vial Sliding Scale - SQ Not Given TIDAC [facility] Protocol Levetiracetam 500 mg 10/03/16 22:00 10/11/16 09:00 Keppra - PO 500 mg BID [facility] Administration Losartan Potassium 100 mg 10/04/16 10:00 10/11/16 09:00 Cozaar - PO 100 mg DAILY [facility] Administration Pantoprazole Sodium 40 mg 10/04/16 10:00 10/11/16 09:00 Protonix - PO 40 mg DAILY [facility] Administration Impression: Likely multiple [employer] mets S/P lung biopsy S/P pneumothorax with chest tube DM Hypertension Plan Awaiting biopsy
[2016-10-12] MEDS: DEXAMETHASONE SOD PHOSPHATE 4 MG/1 ML VIAL IVPB SCH ×4 (02:40→21:50)
[2016-10-12] MEDS ORDERED: PT OWN MED DRAWER 7, Y5N ONE ×2 (05:51→16:58)
[2016-10-12] MEDS: GLIMEPIRIDE 4 MG TABLET (FP) PO SCH ×2 (06:06→17:26)
[2016-10-12] MEDS: INSULIN SLIDING SCALE (NOVOLOG) 1 VIAL SQ SCH ×3 (06:07→17:26)
[2016-10-12 07:39] LABS: BASOPHIL 0.1 % (0-2.0); MCH 28.3 pg (25.7-33.7); MCHC 33.3 g/dl (32.0-35.9); MEAN PLT VOLUME 8.5 fl (7.5-11.1); PLATELET COUNT 197 K/MM3 (134-434); RDW 13.4 % (11.9-15.9); WHITE BLOOD COUNT 14.7 K/mm3 (4.0-10.0)
[2016-10-12 09:22] LABS: CALCIUM 8.5 mg/dL (8.5-10.1)
[2016-10-12] MEDS: LOSARTAN POTASSIUM 50 MG TABLET (FP) PO SCH (09:24)
[2016-10-12] MEDS: HYDROCHLOROTHIAZIDE 25 MG TABLET (FP) PO SCH (09:24)
[2016-10-12] MEDS: CARVEDILOL 25 MG TABLET (FP) PO SCH (09:24)
[2016-10-12] MEDS: levETIRAcetam 500 MG TABLET (FP) PO SCH ×2 (09:24→21:50)
[2016-10-12] MEDS: PANTOPRAZOLE 40 MG TABLET (FP) PO SCH (09:24)
[2016-10-12 09:28] LABS: ALK PHOS 50 U/L (45-117); ANION GAP 13 (8-16); BILIRUBIN,TOTAL 0.8 mg/dL (0.2-1.0); CO2 29 mmol/L (21-32); CREATININE 1.1 mg/dL (0.7-1.3); GLUCOSE,RANDOM 276 mg/dL (74-106); SGOT/AST 8 U/L (15-37); SGPT/ALT 27 U/L (12-78); TOT PROT 5.9 g/dl (6.4-8.2)
--- NOTE | 2016-10-12 09:44 | PN ---
Progress Note, Physician Chief Complaint: Patient denies any cmplaints hemodynamically stable no fever, chills, cough or Dysuria. History of Present Illness: 76 yrs old man with H/O HTN, T2DM admitted with blurring of vision with Brain mets w/u shows Multiple brain mets, Left Lung mass and RT LE DVT s/p IVC filter and Left Lung mass Biopsy. - Current Medication List Current Medications: Active Medications Carvedilol (Coreg -) 25 mg PO DAILY [facility] Last Admin: 10/12/16 09:24 Dose: 25 mg Dexamethasone Sodium Phosphate (Decadron Injection -) 4 mg IVPB Q6H-IV [facility] Last Admin: 10/12/16 09:24 Dose: 4 mg Glimepiride (Amaryl -) 4 mg PO 0700,1630 [facility] Last Admin: 10/12/16 06:06 Dose: 4 mg Hydrochlorothiazide (Hctz -) 25 mg PO DAILY [facility] Last Admin: 10/12/16 09:24 Dose: 25 mg Insulin Aspart (Novolog Vial Sliding Scale -) 1 vial SQ TIDAC [facility] PRN Reason: Protocol Last Admin: 10/12/16 06:07 Dose: 8 units Levetiracetam (Keppra -) 500 mg PO BID [facility] Last Admin: 10/12/16 09:24 Dose: 500 mg Losartan Potassium (Cozaar -) 100 mg PO DAILY [facility] Last Admin: 10/12/16 09:24 Dose: 100 mg Pantoprazole Sodium (Protonix -) 40 mg PO DAILY [facility] Last Admin: 10/12/16 09:24 Dose: 40 mg - Objective Vital Signs: Vital Signs Temperature 98.0 F 10/12/16 09:17 Pulse Rate 74 10/12/16 09:17 Respiratory Rate 18 10/12/16 09:17 Blood Pressure 111/60 10/12/16 09:17 O2 Sat by Pulse Oximetry (%) 99 10/11/16 21:00 Constitutional: Yes: Well Nourished, No Distress, Anxious Eyes: Yes: WNL, Conjunctiva Clear, EOM Intact HENT: Yes: WNL, Atraumatic, Normocephalic Cardiovascular: Yes: WNL, Regular Rate and Rhythm. No: JVD, Gallop, Murmur Respiratory: Yes: WNL, Regular. No: Cough, Rales, Wheezes Gastrointestinal: Yes: WNL, Normal Bowel Sounds, Soft ...Rectal Exam: Yes: Deferred Genitourinary: Yes: WNL Musculoskeletal: Yes: WNL Extremities: Yes: Calf Tenderness Edema: Yes (Right) Edema: RLE: 1+ Peripheral Pulses: Left Doralis Pedis: 2+, Right Dorsalis Pedis: 2+ Labs: CBC, BMP 10/12/16 06:00 10/12/16 06:00 INR, PTT INR 1.02 (0.82-1.09) 10/06/16 09:30 Fibrinogen 262.0 mg/dL (238-498) 10/06/16 09:30 - ....Imaging X-ray: Report Reviewed (on 10/10 Inspiration expiration film tube in left chest smallapical Pneumothorax.) MRI: Report Reviewed (Multiple brain Mets) Other: Other (Lung Biopsy; Necrotic material satined Cytology awaited) Problem List - Problems (1) Brain metastases Assessment/Plan: C/O Blurring of vision multiple, enhancing lesion, primary w/u in progress cont Keppra and Dexamethasone, Oncology and Neuro surgery input appreciated. Code(s): C79.31 - SECONDARY MALIGNANT NEOPLASM OF BRAIN (2) Blurry vision, bilateral Code(s): H53.8 - OTHER VISUAL DISTURBANCES (3) HTN (hypertension) Assessment/Plan: Well controlled on current meds, Cont Coreg, and Losartan at home dose Hold Code(s): I10 - ESSENTIAL (PRIMARY) HYPERTENSION (4) Diabetes mellitus Assessment/Plan: H/O T2DM on oral pills will hold metformin cont Amary , considering on HIgh dose steroids cont correction dose pre meal coverage. Code(s): E11.9 - TYPE 2 DIABETES MELLITUS WITHOUT COMPLICATIONS Qualifiers: Diabetes mellitus type: type 2 Diabetes mellitus complication status: without complication (5) Deep vein blood clot of right lower extremity Assessment/Plan: Patient c/o Rt LeEswelling and pain for past few days, LE Doppler shows Rt LE extensive DVT till common Femoral V, patient has multiple mets will consult s/p IVC filter Code(s): I82.401 - ACUTE EMBOLISM AND THOMBOS UNSP DEEP VEINS OF R LOW EXTREM Qualifiers: Affected thrombotic vein of extremity: femoral Chronicity: acute Qualified Code(s): I82.411 - Acute embolism and thrombosis of right femoral vein (6) Pulmonary nodule Assessment/Plan: 1.6 Cm Left UL Pulmonary nodule with Medistinal LN enlargement, s/p mass Biopsy developed pneumothorax s/p chest tube removed on 10/10/16, Biopsy result awaited. Code(s): R91.1 - SOLITARY PULMONARY NODULE (7) Colonic thickening Code(s): K63.9 - DISEASE OF INTESTINE, UNSPECIFIED (8) Elevated WBC count Assessment/Plan: Afebrile asymptomatic, no localizing symptoms of cough, abd pain or dysuria, most likely due to dExamrethasone will observe Code(s): D72.829 - ELEVATED WHITE BLOOD CELL COUNT, UNSPECIFIED
--- NOTE | 2016-10-12 09:47 | PATH ---
Surgical Pathology Report Patient Name: JAMIE REYES Med. Rec. #: [id number] /Age/Gender: 1940 (Age: 76) / M Account: [id number] Location: [facility] MED/SURG Taken: 10/07/2016 Received: 10/07/2016 Reported: 10/12/2016 Physicians: Lawrence Araujo M.D. Asim Obregon M.D. Freddie Barbosa M.D., PhD Cherelle Bloom M.D. Specimen(s) Received LEFT LUNG BIOPSY Clinical History 76 year old with lung mass and brain mets; r/o primary lung cancer vs mets. 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 Comment: The biopsy shows fragments of necrotic malignant neoplasm with a brown pigment. Immunohistochemical stains performed and interpreted at [facility] show the following: the necrotic tumor cells appear positive for S100 and appear negative for Ae1/Ae3 keratin, CK7, CK20, TTF1, p63 and synaptophysin. Iron stain is negative. Additional immunohistochemical stains performed at the [place], [place] ([id number]) show necrotic tumor cells appearing positive for MiTF and focally for Melan A immunostains; SOX10 shows nonspecific background staining; CD56 appears negative. Overall, the morphologic findings and the immunoprofile are of involvement by necrotic malignant neoplasm most compatible with melanoma. Clinical and imaging correlations are suggested. The case was preliminary discussed with Dr. Obregon on 10/11/16. Electronically Signed Eric Doran M.D. Addendum Reported: 10/12/2016 Addendum Diagnosis Additional immunohistochemical stain for HMB45 performed at [facility] [place], [place] ([id number]) and interpreted at [facility] shows the tumor cells being positive for HMB45, supporting the interpretation above. Eric Doran M.D. Addendum Reported: 10/20/2016 Addendum Diagnosis BRAF Mutation analysis performed and interpreted at [facility] [place], [place] ([id number]) shows the following result: Results: A nucleotide change encoding the V600 mutation was not detected. Interpretation: NEGATIVE for BRAF V600 mutation. Comment: this result does not rule out the presence of BRAF mutation at a level below the sensitivity of the detection of this assay. This assay will only detect V600E (c.1799>A), V600K(c.1798-1799delGTinsAA) and V600D (c.1799_1800_delTGinsAT) mutations in exon 15 of the BRAF gene. The analytical sensitivity of this test is approximately 1% of mutant DNA in a background of wild-type genomic DNA. Eric Doran M.D. Gross Description Received in formalin, labeled "left lung biopsy" are four cylindrical fragments of tissue ranging in size from 0.4 to 0.7 cm. in length and less than 0.1 cm in diameter. Entirely submitted in one cassette. (AF) ymcash/10/07/2016
[2016-10-12] MEDS ORDERED: INSULIN (NOVOLOG) ASPART 100 UNITS/ML 10ML VIAL ONE (11:12)
[2016-10-13] MEDS: DEXAMETHASONE SOD PHOSPHATE 4 MG/1 ML VIAL IVPB SCH ×4 (03:58→21:34)
[2016-10-13] MEDS ORDERED: PT OWN MED DRAWER 7, Y5N ONE (06:18)
[2016-10-13] MEDS: GLIMEPIRIDE 4 MG TABLET (FP) PO SCH ×2 (06:26→17:17)
[2016-10-13] MEDS: INSULIN SLIDING SCALE (NOVOLOG) 1 VIAL SQ SCH ×4 (06:26→17:32)
[2016-10-13] MEDS: CARVEDILOL 25 MG TABLET (FP) PO SCH (09:27)
[2016-10-13] MEDS: levETIRAcetam 500 MG TABLET (FP) PO SCH ×2 (09:27→21:34)
[2016-10-13] MEDS: LOSARTAN POTASSIUM 50 MG TABLET (FP) PO SCH (09:27)
[2016-10-13] MEDS: HYDROCHLOROTHIAZIDE 25 MG TABLET (FP) PO SCH (09:27)
[2016-10-13] MEDS: PANTOPRAZOLE 40 MG TABLET (FP) PO SCH (09:28)
--- NOTE | 2016-10-13 13:20 | PN ---
Progress Note, Physician Chief Complaint: No new complaints wants to go home, still confuse History of Present Illness: 76 yrs old man with H/O HTN, T2DM admitted with blurring of vision with Brain mets w/u shows Multipple brain mets, Left Lung mass and RT LE DVT s/p IVC filter and Left Lung mass Biopsy that shows Melanoma. - Current Medication List Current Medications: Active Medications Carvedilol (Coreg -) 25 mg PO DAILY [facility] Last Admin: 10/13/16 09:27 Dose: 25 mg Dexamethasone Sodium Phosphate (Decadron Injection -) 4 mg IVPB Q6H-IV [facility] Last Admin: 10/13/16 09:27 Dose: 4 mg Glimepiride (Amaryl -) 4 mg PO 0700,1630 [facility] Last Admin: 10/13/16 06:26 Dose: 4 mg Hydrochlorothiazide (Hctz -) 25 mg PO DAILY [facility] Last Admin: 10/13/16 09:27 Dose: 25 mg Insulin Aspart (Novolog Vial Sliding Scale -) 1 vial SQ TIDAC [facility] PRN Reason: Protocol Last Admin: 10/13/16 12:12 Dose: 12 units Levetiracetam (Keppra -) 500 mg PO BID [facility] Last Admin: 10/13/16 09:27 Dose: 500 mg Losartan Potassium (Cozaar -) 100 mg PO DAILY [facility] Last Admin: 10/13/16 09:27 Dose: 100 mg Pantoprazole Sodium (Protonix -) 40 mg PO DAILY [facility] Last Admin: 10/13/16 09:28 Dose: 40 mg - Objective Vital Signs: Vital Signs Temperature 97.9 F 10/13/16 12:32 Pulse Rate 67 10/13/16 12:32 Respiratory Rate 20 10/13/16 12:32 Blood Pressure 113/53 10/13/16 12:32 O2 Sat by Pulse Oximetry (%) 96 10/12/16 21:00 Constitutional: Yes: Well Nourished, No Distress, Anxious Eyes: Yes: WNL, Conjunctiva Clear, EOM Intact HENT: Yes: WNL, Atraumatic, Normocephalic. No: Hoarseness, Nasal Congestion Neck: Yes: WNL, Supple, Trachea Midline Cardiovascular: Yes: WNL, Regular Rate and Rhythm, S1. No: JVD, Murmur, Rub Respiratory: Yes: WNL, Regular, CTA Bilaterally Gastrointestinal: Yes: WNL, Normal Bowel Sounds, Soft ...Rectal Exam: Yes: Deferred Genitourinary: Yes: WNL Musculoskeletal: Yes: WNL. No: Back Pain, Joint Stiffness, Joint Swelling Extremities: No: Deformity, Delayed Capillary Refill Edema: Yes Edema: RLE: 1+ Peripheral Pulses: Left Doralis Pedis: 2+, Right Dorsalis Pedis: 2+ Neurological: Yes: Alert, Babinski negative, Confusion ...Motor Strength: WNL Labs: CBC, BMP 10/12/16 06:00 10/12/16 06:00 INR, PTT INR 1.02 (0.82-1.09) 10/06/16 09:30 Fibrinogen 262.0 mg/dL (238-498) 10/06/16 09:30 - ....Imaging Other: Other (Lung Biopsy shows Melnoma) Problem List - Problems (1) Brain metastases Assessment/Plan: C/O Blurring of vision multiple, enhancing lesion, primary w/u in progress cont Keppra and Dexamethasone, Oncology and Neuro surgery input appreciated. Lung Biopsy shows Melanoam will cont PO Keppra and Dexamethsone on discharge after consulting treatement plan with oncology team. Code(s): C79.31 - SECONDARY MALIGNANT NEOPLASM OF BRAIN (2) Blurry vision, bilateral Assessment/Plan: Due to Brain mets , unknown Primary lesion, no clinical sign of cerbral edema, evaluated by Oncology and Neuro Surgery, will F/u work for primary site, mean time cont decadrone and Keppra for seizures and Brain edema prophylaxis . Code(s): H53.8 - OTHER VISUAL DISTURBANCES (3) HTN (hypertension) Assessment/Plan: Well controlled on current meds, Cont Coreg, and Losartan at home dose Hold Code(s): I10 - ESSENTIAL (PRIMARY) HYPERTENSION (4) Diabetes mellitus Assessment/Plan: H/O T2DM on oral pills will hold metformin cont Amary , considering on HIgh dose steroids cont correction dose pre meal coverage. Poorly controlled will add Levimir 8 units at ed time Code(s): E11.9 - TYPE 2 DIABETES MELLITUS WITHOUT COMPLICATIONS Qualifiers: Diabetes mellitus type: type 2 Diabetes mellitus complication status: without complication (5) Deep vein blood clot of right lower extremity Assessment/Plan: Patient c/o Rt LeEswelling and pain for past few days, LE Doppler shows Rt LE extensive DVT till common Femoral V, patient has multiple mets will consult s/p IVC filter Code(s): I82.401 - ACUTE EMBOLISM AND THOMBOS UNSP DEEP VEINS OF R LOW EXTREM Qualifiers: Affected thrombotic vein of extremity: femoral Chronicity: acute Qualified Code(s): I82.411 - Acute embolism and thrombosis of right femoral vein (6) Pulmonary nodule Assessment/Plan: 1.6 Cm Left UL Pulmonary nodule with Medistinal LN enlargement, s/p mass Biopsy developed pneumothorax s/p chest tube removed on 10/10/16, Biopsy result shows Melanoma Code(s): R91.1 - SOLITARY PULMONARY NODULE (7) Elevated WBC count Assessment/Plan: Afebrile asymptomatic, no localizing symptoms of cough, abd pain or dysuria, most likely due to Dexamrethasone will observe Code(s): D72.829 - ELEVATED WHITE BLOOD CELL COUNT, UNSPECIFIED Assessment/Plan Disposition:Biopsy shows Melanoma , will discuss with Oncology team about disposition, including out patient F/U for Radiation and chemotherapy, will switch Dexamethson to PO cont PPI add Levimir coverage bed time for better Glycemic control.
--- NOTE | 2016-10-13 15:00 | PN ---
Progress Note (short form) - Note Progress Note: Radiation Oncology: I spoke with Mr. Drake's daughter and administration. The family wants to proceed with whole brain radiation. I asked the administration if they would approve this and am waiting back to hear from them.
--- NOTE | 2016-10-13 15:25 | PN ---
Progress Note (short form) - Note Progress Note: PAtient seen and examined Denies any complaints confused wants to go home Last Vital Signs Temp Pulse Resp BP Pulse Ox 97.9 F 67 20 113/53 96 10/13/16 14:00 10/13/16 14:00 10/13/16 14:00 10/13/16 14:00 10/13/16 09:00 Cor: RSR, No murmurs, No gallops Lungs: Clear to P&A Abd: Soft, Normal bowel sounds, No organomegaly Ext:No significant edema Skin: No rashes, Integument intact Labs reviewed Home Medication List Medication Instructions Recorded Confirmed Type No Home Medications 0 dose .ROUTE UTDICT 01/23/14 01/30/14 History Aspirin [ASA -] 81 mg PO DAILY 10/03/16 10/03/16 History Carvedilol [Coreg] 25 mg PO DAILY 10/03/16 10/03/16 History Glimepiride [Amaryl -] 4 mg PO BID 10/03/16 10/03/16 History Hydrochlorothiazide [Hctz -] 25 mg PO DAILY 10/03/16 10/03/16 History Losartan Potassium 100 mg PO DAILY 10/03/16 10/03/16 History Metformin HCl 500 mg PO DAILY 10/03/16 10/03/16 History Active Medications Generic Name Dose Route Start Last Admin Trade Name Miguel PRN Reason Stop Dose Admin Carvedilol 25 mg 10/04/16 10:00 10/13/16 09:27 Coreg - PO 25 mg DAILY [facility] Administration Dexamethasone Sodium Phosphate 4 mg 10/04/16 03:00 10/13/16 14:16 Decadron Injection - IVPB 4 mg Q6H-IV [facility] Administration Glimepiride 4 mg 10/04/16 10:00 10/13/16 06:26 Amaryl - PO 4 mg 0700,1630 [facility] Administration Hydrochlorothiazide 25 mg 10/04/16 10:00 10/13/16 09:27 Hctz - PO 25 mg DAILY [facility] Administration Insulin Aspart 1 vial 10/04/16 16:30 10/13/16 12:12 Novolog Vial Sliding Scale - SQ 12 units TIDAC [facility] Administration Protocol Insulin Detemir 8 units 10/13/16 22:00 Levemir Vial SQ HS [facility] Levetiracetam 500 mg 10/03/16 22:00 10/13/16 09:27 Keppra - PO 500 mg BID [facility] Administration Losartan Potassium 100 mg 10/04/16 10:00 10/13/16 09:27 Cozaar - PO 100 mg DAILY [facility] Administration Pantoprazole Sodium 40 mg 10/04/16 10:00 10/13/16 09:28 Protonix - PO 40 mg DAILY [facility] Administration A/P 76 y/o patient with multiple brain mets. DELMAR lung lesion, mediastinal adenopathy , thickening of colon s/p ivc filter , given DVT and brain mets s/p biopsy of DELMAR lung mass biopsy c/w necrotic tumor most c/w melanoma small pneumothorax continue decadron/protonix rad-onc to consider WBRT discussed with PMD/rad-onc
[2016-10-13] MEDS ORDERED: INSULIN DETEMIR 100 UNITS/ML MDV SQ SCH (22:00)
[2016-10-14] MEDS: DEXAMETHASONE SOD PHOSPHATE 4 MG/1 ML VIAL IVPB SCH ×3 (03:16→17:21)
[2016-10-14] MEDS: GLIMEPIRIDE 4 MG TABLET (FP) PO SCH ×2 (06:06→17:45)
[2016-10-14] MEDS: INSULIN SLIDING SCALE (NOVOLOG) 1 VIAL SQ SCH ×3 (06:06→17:44)
[2016-10-14] MEDS: CARVEDILOL 25 MG TABLET (FP) PO SCH (09:42)
[2016-10-14] MEDS: LOSARTAN POTASSIUM 50 MG TABLET (FP) PO SCH (09:43)
[2016-10-14] MEDS: levETIRAcetam 500 MG TABLET (FP) PO SCH ×2 (09:43→21:55)
[2016-10-14] MEDS: HYDROCHLOROTHIAZIDE 25 MG TABLET (FP) PO SCH (09:43)
[2016-10-14] MEDS: PANTOPRAZOLE 40 MG TABLET (FP) PO SCH (09:43)
--- NOTE | 2016-10-14 10:05 | PN ---
Progress Note (short form) - Note Progress Note: PAtient seen and examined Denies any complaints confused wants to go home does not want to be examined Last Vital Signs Temp Pulse Resp BP Pulse Ox 97.8 F 63 18 138/74 96 10/14/16 05:52 10/14/16 05:52 10/14/16 05:52 10/14/16 05:52 10/13/16 09:00 Active Medications Generic Name Dose Route Start Last Admin Trade Name Miguel PRN Reason Stop Dose Admin Carvedilol 25 mg 10/04/16 10:00 10/14/16 09:42 Coreg - PO 25 mg DAILY [facility] Administration Dexamethasone Sodium Phosphate 4 mg 10/04/16 03:00 10/14/16 09:41 Decadron Injection - IVPB Not Given Q6H-IV [facility] Glimepiride 4 mg 10/04/16 10:00 10/14/16 06:06 Amaryl - PO 4 mg 0700,1630 [facility] Administration Hydrochlorothiazide 25 mg 10/04/16 10:00 10/14/16 09:43 Hctz - PO 25 mg DAILY [facility] Administration Insulin Aspart 1 vial 10/04/16 16:30 10/14/16 06:06 Novolog Vial Sliding Scale - SQ 8 units TIDAC [facility] Administration Protocol Insulin Detemir 8 units 10/13/16 22:00 10/13/16 21:34 Levemir Vial SQ Not Given HS [facility] Levetiracetam 500 mg 10/03/16 22:00 10/14/16 09:43 Keppra - PO 500 mg BID [facility] Administration Losartan Potassium 100 mg 10/04/16 10:00 10/14/16 09:43 Cozaar - PO 100 mg DAILY [facility] Administration Pantoprazole Sodium 40 mg 10/04/16 10:00 10/14/16 09:43 Protonix - PO 40 mg DAILY [facility] Administration Labs reviewed A/P 76 y/o patient with multiple brain mets. DELMAR lung lesion, mediastinal adenopathy , thickening of colon s/p ivc filter , given DVT and brain mets s/p biopsy of DELMAR lung mass biopsy c/w necrotic tumor most c/w melanoma continue decadron/protonix rad-onc to consider WBRT would need placement after radiation therapy
[2016-10-14] MEDS ORDERED: INSULIN (NOVOLOG) ASPART 100 UNITS/ML 10ML VIAL ONE (11:56)
--- NOTE | 2016-10-14 16:53 | PN ---
Progress Note, Physician Chief Complaint: No new complaints wants to go home, still confused. History of Present Illness: 76 yrs old man with H/O HTN, T2DM admitted with blurring of vision with Brain mets w/u shows Multipple brain mets, Left Lung mass and RT LE DVT s/p IVC filter and Left Lung mass Biopsy that shows Melanoma. Patient is awaiting Cranial RT for Brain mets - Current Medication List Current Medications: Active Medications Carvedilol (Coreg -) 25 mg PO DAILY [facility] Last Admin: 10/14/16 09:42 Dose: 25 mg Dexamethasone (Decadron -) 4 mg PO Q6HPO [facility] Glimepiride (Amaryl -) 4 mg PO 0700,1630 [facility] Last Admin: 10/14/16 06:06 Dose: 4 mg Hydrochlorothiazide (Hctz -) 25 mg PO DAILY [facility] Last Admin: 10/14/16 09:43 Dose: 25 mg Insulin Aspart (Novolog Vial Sliding Scale -) 1 vial SQ TIDAC [facility] PRN Reason: Protocol Last Admin: 10/14/16 11:59 Dose: 12 units Insulin Detemir (Levemir Vial) 12 units SQ [facility] Levetiracetam (Keppra -) 500 mg PO BID [facility] Last Admin: 10/14/16 09:43 Dose: 500 mg Losartan Potassium (Cozaar -) 100 mg PO DAILY [facility] Last Admin: 10/14/16 09:43 Dose: 100 mg Pantoprazole Sodium (Protonix -) 40 mg PO DAILY [facility] Last Admin: 10/14/16 09:43 Dose: 40 mg - Objective Vital Signs: Vital Signs Temperature 97.8 F 10/14/16 09:00 Pulse Rate 76 10/14/16 09:00 Respiratory Rate 18 10/14/16 09:00 Blood Pressure 143/74 10/14/16 09:00 O2 Sat by Pulse Oximetry (%) 96 10/14/16 09:00 Constitutional: Yes: Well Nourished, Anxious. No: Diaphoresis Eyes: Yes: WNL, Conjunctiva Clear, EOM Intact HENT: Yes: WNL, Atraumatic, Normocephalic Neck: Yes: WNL, Supple, Trachea Midline Cardiovascular: Yes: WNL, Regular Rate and Rhythm Respiratory: Yes: WNL, Regular, CTA Bilaterally Gastrointestinal: Yes: WNL, Normal Bowel Sounds, Soft Genitourinary: Yes: WNL Musculoskeletal: Yes: WNL Extremities: Yes: Calf Tenderness Edema: Yes (Rt) Edema: RLE: 1+ Peripheral Pulses: Right Radial: 2+, Left Doralis Pedis: 2+ Integumentary: Yes: WNL Neurological: Yes: Alert, Confusion ...Motor Strength: WNL Psychiatric: Yes: Alert Labs: CBC, BMP 10/12/16 06:00 10/12/16 06:00 INR, PTT INR 1.02 (0.82-1.09) 10/06/16 09:30 Fibrinogen 262.0 mg/dL (238-498) 10/06/16 09:30 Problem List - Problems (1) Brain metastases Assessment/Plan: C/O Blurring of vision multiple, enhancing lesion, primary w/u in progress cont Keppra and Dexamethasone, Oncology and Neuro surgery input appreciated. Lung Biopsy shows Melanoam will cont PO Keppra and Dexamethsone awaiting Brain RT for mets. Code(s): C79.31 - SECONDARY MALIGNANT NEOPLASM OF BRAIN (2) Blurry vision, bilateral Assessment/Plan: Due to Brain mets , unknown Primary lesion, no clinical sign of cerbral edema, evaluated by Oncology and Neuro Surgery, will F/u work for primary site, mean time cont decadrone and Keppra for seizures and Brain edema prophylaxis . Code(s): H53.8 - OTHER VISUAL DISTURBANCES (3) HTN (hypertension) Assessment/Plan: Well controlled on current meds, Cont Coreg, HCTZ and Losartan at home dose Hold Code(s): I10 - ESSENTIAL (PRIMARY) HYPERTENSION (4) Diabetes mellitus Assessment/Plan: H/O T2DM on oral pills will hold metformin cont Amary , considering on HIgh dose steroids cont correction dose pre meal coverage.FS Poorly controlled will increase Levimir 12 units at bed time Code(s): E11.9 - TYPE 2 DIABETES MELLITUS WITHOUT COMPLICATIONS Qualifiers: Diabetes mellitus type: type 2 Diabetes mellitus complication status: without complication (5) Deep vein blood clot of right lower extremity Assessment/Plan: Patient c/o Rt LE swelling and pain for past few days, LE Doppler shows Rt LE extensive DVT till common Femoral V, patient has multiple mets will consult s/p IVC filter Code(s): I82.401 - ACUTE EMBOLISM AND THOMBOS UNSP DEEP VEINS OF R LOW EXTREM Qualifiers: Affected thrombotic vein of extremity: femoral Chronicity: acute Qualified Code(s): I82.411 - Acute embolism and thrombosis of right femoral vein (6) Pulmonary nodule Code(s): R91.1 - SOLITARY PULMONARY NODULE (7) Elevated WBC count Assessment/Plan: Afebrile asymptomatic, no localizing symptoms of cough, abd pain or dysuria, most likely due to Dexamrethasone will observe, remained afebrile Code(s): D72.829 - ELEVATED WHITE BLOOD CELL COUNT, UNSPECIFIED Assessment/Plan Disposition:Biopsy shows Melanoma , will discuss with Oncology team about disposition, including out patient F/U for Radiation followed by chemotherapy , increase Levimir coverage bed time for better Glycemic control. Pt is schedule for RT for Brain Mets. Quality Measures-Exclusions - VTE Prophylaxis Contraindications to VTE Prophylaxis: Bleeding (Brain mets with Melnoma)
[2016-10-14] MEDS ORDERED: PT OWN MED DRAWER 7, Y5N ONE (17:37)
[2016-10-14] MEDS: DEXAMETHASONE 4 MG TABLET (FP) PO SCH ×2 (17:45→23:06)
[2016-10-14] MEDS ORDERED: INSULIN DETEMIR 100 UNITS/ML MDV SQ SCH (22:00)
[2016-10-15] MEDS ORDERED: PT OWN MED DRAWER 7, Y5N ONE ×3 (06:23→17:20)
[2016-10-15] MEDS: INSULIN SLIDING SCALE (NOVOLOG) 1 VIAL SQ SCH ×4 (06:26→18:52)
[2016-10-15] MEDS: DEXAMETHASONE 4 MG TABLET (FP) PO SCH ×4 (06:26→23:28)
[2016-10-15] MEDS: GLIMEPIRIDE 4 MG TABLET (FP) PO SCH ×2 (06:26→17:24)
[2016-10-15 07:16] LABS: BASOPHIL 0.1 % (0-2.0); MCH 28.5 pg (25.7-33.7); MCHC 33.3 g/dl (32.0-35.9); MEAN CELL VOLUME 85.4 fl (80-96); MEAN PLT VOLUME 8.1 fl (7.5-11.1); NEUTROPHILS 88.1 % (42.8-82.8); PLATELET COUNT 194 K/MM3 (134-434); RDW 13.2 % (11.9-15.9); WHITE BLOOD COUNT 13.3 K/mm3 (4.0-10.0)
[2016-10-15 07:35] LABS: ALK PHOS 52 U/L (45-117); ANION GAP 9 (8-16); BILIRUBIN,TOTAL 0.8 mg/dL (0.2-1.0); CALCIUM 8.5 mg/dL (8.5-10.1); CO2 32 mmol/L (21-32); CREATININE 1.1 mg/dL (0.7-1.3); GLUCOSE,RANDOM 248 mg/dL (74-106); SGOT/AST 8 U/L (15-37); SGPT/ALT 26 U/L (12-78); TOT PROT 5.7 g/dl (6.4-8.2)
[2016-10-15] MEDS: PANTOPRAZOLE 40 MG TABLET (FP) PO SCH (10:08)
[2016-10-15] MEDS: HYDROCHLOROTHIAZIDE 25 MG TABLET (FP) PO SCH (10:08)
[2016-10-15] MEDS: LOSARTAN POTASSIUM 50 MG TABLET (FP) PO SCH (10:08)
[2016-10-15] MEDS: CARVEDILOL 25 MG TABLET (FP) PO SCH (10:08)
[2016-10-15] MEDS: levETIRAcetam 500 MG TABLET (FP) PO SCH ×2 (10:08→22:14)
--- NOTE | 2016-10-15 10:41 | PN ---
Progress Note, Physician Chief Complaint: No new complaints denies any head ache or vomiting, wants to go home, still confused. History of Present Illness: 76 yrs old man with H/O HTN, T2DM admitted with blurring of vision with Brain mets w/u shows Multiple brain mets, Left Lung mass and RT LE DVT s/p IVC filter and Left Lung mass Biopsy that shows Melanoma. Patient is awaiting Cranial RT for Brain mets. - Current Medication List Current Medications: Active Medications Carvedilol (Coreg -) 25 mg PO DAILY [facility] Last Admin: 10/15/16 10:08 Dose: 25 mg Dexamethasone (Decadron -) 4 mg PO Q6HPO [facility] Last Admin: 10/15/16 06:26 Dose: 4 mg Glimepiride (Amaryl -) 4 mg PO 0700,1630 [facility] Last Admin: 10/15/16 06:26 Dose: 4 mg Hydrochlorothiazide (Hctz -) 25 mg PO DAILY [facility] Last Admin: 10/15/16 10:08 Dose: 25 mg Insulin Aspart (Novolog Vial Sliding Scale -) 1 vial SQ TIDAC [facility] PRN Reason: Protocol Last Admin: 10/15/16 06:26 Dose: 4 units Insulin Detemir (Levemir Vial) 12 units SQ HS [facility] Last Admin: 10/14/16 21:58 Dose: 12 unit Levetiracetam (Keppra -) 500 mg PO BID [facility] Last Admin: 10/15/16 10:08 Dose: 500 mg Losartan Potassium (Cozaar -) 100 mg PO DAILY [facility] Last Admin: 10/15/16 10:08 Dose: 100 mg Pantoprazole Sodium (Protonix -) 40 mg PO DAILY [facility] Last Admin: 10/15/16 10:08 Dose: 40 mg - Objective Vital Signs: Vital Signs Temperature 97.7 F 10/15/16 05:58 Pulse Rate 72 10/15/16 05:58 Respiratory Rate 18 10/15/16 05:58 Blood Pressure 130/72 10/15/16 05:58 O2 Sat by Pulse Oximetry (%) 96 10/14/16 09:00 Constitutional: Yes: Well Nourished, No Distress, Anxious Eyes: Yes: WNL, Conjunctiva Clear, EOM Intact HENT: Yes: WNL, Atraumatic, Normocephalic Neck: Yes: WNL, Supple, Trachea Midline Respiratory: Yes: WNL, Regular, CTA Bilaterally. No: Accessory Muscle Use Gastrointestinal: Yes: WNL, Normal Bowel Sounds, Soft ...Rectal Exam: Yes: Deferred Genitourinary: Yes: WNL. No: Bladder Distention, CVA Tenderness - Left, CVA Tenderness - Right Musculoskeletal: Yes: WNL. No: Back Pain, Joint Stiffness, Joint Swelling Extremities: Yes: WNL Edema: Yes Edema: RUE: 1+, RLE: 1+ Peripheral Pulses WNL: Yes Peripheral Pulses: Right Dorsalis Pedis: 2+, Left Femoral: 2+ Neurological: Yes: Alert, Cran Nerves II-XII Intact. No: Dysarthria, Facial Droop ...Motor Strength: WNL Psychiatric: Yes: Alert, Oriented, Agitated Labs: CBC, BMP 10/15/16 06:00 10/15/16 06:00 INR, PTT INR 1.02 (0.82-1.09) 10/06/16 09:30 Fibrinogen 262.0 mg/dL (238-498) 10/06/16 09:30 Problem List - Problems (1) Brain metastases Assessment/Plan: C/O Blurring of vision multiple, enhancing lesion, primary w/u in progress cont Keppra and IV Dexamethasone, Oncology and Neuro surgery input appreciated. Lung Biopsy shows Melanoma will cont PO Keppra and IV Dexamethsone awaiting Brain RT for mets. Code(s): C79.31 - SECONDARY MALIGNANT NEOPLASM OF BRAIN (2) Blurry vision, bilateral Assessment/Plan: Due to Brain mets , unknown Primary lesion, no clinical sign of cerbral edema, evaluated by Oncology and Neuro Surgery, will F/u work for primary site, mean time cont Dexamethasone and Keppra for seizures and Brain edema prophylaxis . Code(s): H53.8 - OTHER VISUAL DISTURBANCES (3) HTN (hypertension) Assessment/Plan: Well controlled on current meds, Cont Coreg, HCTZ and Losartan at home dose Hold Code(s): I10 - ESSENTIAL (PRIMARY) HYPERTENSION (4) Diabetes mellitus Assessment/Plan: H/O T2DM on oral pills will hold metformin cont Amaryl , considering on High dose steroids cont correction dose pre meal coverage. FS are poorly controlled will increase Insulin Levimir 15 units at bed time Code(s): E11.9 - TYPE 2 DIABETES MELLITUS WITHOUT COMPLICATIONS Qualifiers: Diabetes mellitus type: type 2 Diabetes mellitus complication status: without complication (5) Deep vein blood clot of right lower extremity Assessment/Plan: Patient c/o Rt LE swelling and pain for past few days, LE Doppler shows Rt LE extensive DVT including CFV, patient has multiple mets, so AC is contraindicated s/p IVC filter. Code(s): I82.401 - ACUTE EMBOLISM AND THOMBOS UNSP DEEP VEINS OF R LOW EXTREM Qualifiers: Affected thrombotic vein of extremity: femoral Chronicity: acute Qualified Code(s): I82.411 - Acute embolism and thrombosis of right femoral vein (6) Pulmonary nodule Assessment/Plan: 1.6 Cm Left UL Pulmonary nodule with Medistinal LN enlargement, s/p mass Biopsy developed pneumothorax s/p chest tube removed on 10/10/16, Biopsy result shows Melanoma Code(s): R91.1 - SOLITARY PULMONARY NODULE (7) Elevated WBC count Assessment/Plan: TWBC remained stable, most likely due to Dexamethason, patient is afebrile, no c/o cough, abd pain or dysuria, will observe. Code(s): D72.829 - ELEVATED WHITE BLOOD CELL COUNT, UNSPECIFIED Assessment/Plan Disposition:Biopsy shows Melanoma , will discuss with Oncology team about disposition, including out patient F/U for Radiation followed by chemotherapy , increase Levimir coverage bed time to 15 units for better Glycemic control. Pt is awaiting for Radiation therapy Brain Mets.Discussed with nurse taking care of the patient. Quality Measures-Exclusions - VTE Prophylaxis Reason for no overlap anticoagulant Rx: Medical Contraindication (Brain mets High risk for ICH so s/p IVC filter.)
--- NOTE | 2016-10-15 14:06 | PN ---
Progress Note (short form) - Note Progress Note: PAtient seen and examined Denies any complaints confused pleasant Last Vital Signs Temp Pulse Resp BP Pulse Ox 97.7 F 72 18 130/72 96 10/15/16 05:58 10/15/16 05:58 10/15/16 05:58 10/15/16 05:58 10/14/16 09:00 HEENT: NEDRA, EOM Intact Cor: RSR, No murmurs, No gallops Lungs: Clear to P&A Abd: Soft, Normal bowel sounds, No organomegaly Ext:No significant edema Abnormal Lab Results 10/15/16 10/15/16 06:00 06:00 WBC 13.3 H Neutrophils % 88.1 H Monocytes % 3.3 L BUN 33 H Random Glucose 248 H AST 8 L Total Protein 5.7 L Albumin 3.0 L Home Medication List Medication Instructions Recorded Confirmed Type No Home Medications 0 dose .ROUTE UTDICT 01/23/14 01/30/14 History Aspirin [ASA -] 81 mg PO DAILY 10/03/16 10/03/16 History Carvedilol [Coreg] 25 mg PO DAILY 10/03/16 10/03/16 History Glimepiride [Amaryl -] 4 mg PO BID 10/03/16 10/03/16 History Hydrochlorothiazide [Hctz -] 25 mg PO DAILY 10/03/16 10/03/16 History Losartan Potassium 100 mg PO DAILY 10/03/16 10/03/16 History Metformin HCl 500 mg PO DAILY 10/03/16 10/03/16 History Active Medications Generic Name Dose Route Start Last Admin Trade Name Miguel PRN Reason Stop Dose Admin Carvedilol 25 mg 10/04/16 10:00 10/15/16 10:08 Coreg - PO 25 mg DAILY [facility] Administration Dexamethasone 4 mg 10/14/16 18:00 10/15/16 12:10 Decadron - PO 4 mg Q6HPO [facility] Administration Glimepiride 4 mg 10/04/16 10:00 10/15/16 06:26 Amaryl - PO 4 mg 0700,1630 [facility] Administration Hydrochlorothiazide 25 mg 10/04/16 10:00 10/15/16 10:08 Hctz - PO 25 mg DAILY [facility] Administration Insulin Aspart 1 vial 10/04/16 16:30 10/15/16 12:09 Novolog Vial Sliding Scale - SQ 12 units TIDAC [facility] Administration Protocol Insulin Detemir 15 units 10/15/16 22:00 Levemir Vial SQ HS [facility] Levetiracetam 500 mg 10/03/16 22:00 10/15/16 10:08 Keppra - PO 500 mg BID [facility] Administration Losartan Potassium 100 mg 10/04/16 10:00 10/15/16 10:08 Cozaar - PO 100 mg DAILY [facility] Administration Pantoprazole Sodium 40 mg 10/04/16 10:00 10/15/16 10:08 Protonix - PO 40 mg DAILY [facility] Administration A/P 76 y/o patient with multiple brain mets. DELMAR lung lesion, mediastinal adenopathy , thickening of colon s/p ivc filter , given DVT and brain mets s/p biopsy of DELMAR lung mass biopsy c/w necrotic tumor most c/w melanoma will check mutation analysis continue decadron/protonix rad-onc to consider WBRT would need placement after radiation therapy
[2016-10-15] MEDS ORDERED: INSULIN (NOVOLOG) ASPART 100 UNITS/ML 10ML VIAL ONE (17:25)
[2016-10-15] MEDS ORDERED: INSULIN DETEMIR 100 UNITS/ML MDV SQ SCH (22:00)
[2016-10-15] MEDS ORDERED: INSULIN (NOVOLOG) ASPART 100 UNITS/ML 10ML VIAL SQ ONE (22:30)
[2016-10-16] MEDS ORDERED: PT OWN MED DRAWER 7, Y5N ONE ×3 (06:18→16:53)
[2016-10-16] MEDS: DEXAMETHASONE 4 MG TABLET (FP) PO SCH ×4 (06:22→23:18)
[2016-10-16] MEDS: GLIMEPIRIDE 4 MG TABLET (FP) PO SCH ×2 (06:22→17:55)
[2016-10-16] MEDS: INSULIN SLIDING SCALE (NOVOLOG) 1 VIAL SQ SCH ×3 (06:26→18:44)
[2016-10-16] MEDS ORDERED: LORazepam 1 MG TABLET PO ONE (09:45)
--- NOTE | 2016-10-16 09:51 | PN ---
Progress Note (short form) - Note Progress Note: NEUROSURGERY Up and walking around; wants to go home No H/A, N/V No C/P, dyspnea PE: AF, VSS HEENT- NC/AT; Neck- supple; Cor- RR; Lungs- CTA; Abd- mildly distended, + BS; Ext- edema and chronic venous changes R > L distal LE; stable A/A/Ox3, speech fluent CN- intact II-XII; Motor- 5/5 without drift; Sensation- intact LT/vibration; DTR -1+; B toes upgoing; Cerebellar- intact B FTN; gait- stable Path L lung bx- melanoma Multifocal brain mets Cont Keppra R LE DVT, s/p IVC filter Tx to follow per oncology - immunotherapy and XRT Consider psych input for competency
[2016-10-16] MEDS: LOSARTAN POTASSIUM 50 MG TABLET (FP) PO SCH (09:55)
[2016-10-16] MEDS: HYDROCHLOROTHIAZIDE 25 MG TABLET (FP) PO SCH (09:55)
[2016-10-16] MEDS: levETIRAcetam 500 MG TABLET (FP) PO SCH ×2 (09:56→21:49)
[2016-10-16] MEDS: PANTOPRAZOLE 40 MG TABLET (FP) PO SCH (09:56)
[2016-10-16] MEDS: CARVEDILOL 25 MG TABLET (FP) PO SCH (09:56)
--- NOTE | 2016-10-16 12:01 | PN ---
Progress Note (short form) - Note Progress Note: Patient remained at his base line Hemodynamically stable, confused , wants to go home, just received Lorazepalm for agitation Vitals; Vital Signs Temperature 98.2 F 10/16/16 06:00 Pulse Rate 75 10/16/16 06:00 Respiratory Rate 20 10/16/16 09:00 Blood Pressure 143/74 10/16/16 06:00 O2 Sat by Pulse Oximetry (%) 98 10/16/16 09:00 Active Medications Generic Name Dose Route Start Last Admin Trade Name Miguel PRN Reason Stop Dose Admin Carvedilol 25 mg 10/04/16 10:00 10/16/16 09:56 Coreg - PO 25 mg DAILY ENOC Administration Dexamethasone 4 mg 10/14/16 18:00 10/16/16 06:22 Decadron - PO 4 mg Q6HPO ENOC Administration Glimepiride 4 mg 10/04/16 10:00 10/16/16 06:22 Amaryl - PO 4 mg 0700,1630 ENOC Administration Insulin Aspart 1 vial 10/16/16 11:52 Novolog Vial Sliding Scale - SQ TIDAC [facility] Protocol Insulin Detemir 15 units 10/15/16 22:00 10/15/16 22:14 Levemir Vial SQ 15 units HS [facility] Administration Levetiracetam 500 mg 10/03/16 22:00 10/16/16 09:56 Keppra - PO 500 mg BID ENOC Administration Losartan Potassium 100 mg 10/04/16 10:00 10/16/16 09:55 Cozaar - PO 100 mg DAILY ENOC Administration Pantoprazole Sodium 40 mg 10/04/16 10:00 10/16/16 09:56 Protonix - PO 40 mg DAILY ENOC Administration Quetiapine Fumarate 25 mg 10/16/16 22:00 Seroquel - PO HS ENOC Elderly man not in distress sleeping General: Well groomed dressed up wants to go home not in distress HEENT: Mm moist, no anemia, PERRLA, EOMI NECK: No JVD No Bruit, No Palpable nodes, Trachea , central. 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 HTN: well Controlled Hold HCTZ rest cont same T2DM: Poorly controlled due to Dexamethasone increase Levimir to 18 units cont Correction dose RT LE DVT: S/P IVC not on Ac for Brain mets. Agitation; add S25 mg daily erqoqulel and PRN Lorazepalm. Discussedwith the nurse taking care of the patient. Disposition; Home after RT Problem List - Problems (1) Brain metastases Code(s): C79.31 - SECONDARY MALIGNANT NEOPLASM OF BRAIN (2) Blurry vision, bilateral Code(s): H53.8 - OTHER VISUAL DISTURBANCES (3) HTN (hypertension) Code(s): I10 - ESSENTIAL (PRIMARY) HYPERTENSION (4) Diabetes mellitus Code(s): E11.9 - TYPE 2 DIABETES MELLITUS WITHOUT COMPLICATIONS Qualifiers: Diabetes mellitus type: type 2 Diabetes mellitus complication status: without complication (5) Deep vein blood clot of right lower extremity Code(s): I82.401 - ACUTE EMBOLISM AND THOMBOS UNSP DEEP VEINS OF R LOW EXTREM Qualifiers: Affected thrombotic vein of extremity: femoral Chronicity: acute Qualified Code(s): I82.411 - Acute embolism and thrombosis of right femoral vein (6) Pulmonary nodule Code(s): R91.1 - SOLITARY PULMONARY NODULE (7) Elevated WBC count Code(s): D72.829 - ELEVATED WHITE BLOOD CELL COUNT, UNSPECIFIED
[2016-10-16] MEDS ORDERED: INSULIN DETEMIR 100 UNITS/ML MDV SQ SCH (12:03)
--- NOTE | 2016-10-16 16:14 | PN ---
Progress Note (short form) - Note Progress Note: PAtient seen and examined Denies any complaints confused pleasant Last Vital Signs Temp Pulse Resp BP Pulse Ox 98.2 F 75 20 143/74 98 10/16/16 06:00 10/16/16 06:00 10/16/16 09:00 10/16/16 06:00 10/16/16 09:00 HEENT: NEDRA, EOM Intact Cor: RSR, No murmurs, No gallops Lungs: Clear to P&A Abd: Soft, Normal bowel sounds, No organomegaly Ext:No significant edema Active Medications Generic Name Dose Route Start Last Admin Trade Name Jean-Pierreq PRN Reason Stop Dose Admin Carvedilol 25 mg 10/04/16 10:00 10/16/16 09:56 Coreg - PO 25 mg DAILY ENOC Administration Dexamethasone 4 mg 10/14/16 18:00 10/16/16 12:50 Decadron - PO 4 mg Q6HPO ENOC Administration Glimepiride 4 mg 10/04/16 10:00 10/16/16 06:22 Amaryl - PO 4 mg 0700,1630 ENOC Administration Insulin Aspart 1 vial 10/16/16 11:52 Novolog Vial Sliding Scale - SQ TIDAC [facility] Protocol Insulin Detemir 18 units 10/16/16 12:03 Levemir Vial SQ HS [facility] Levetiracetam 500 mg 10/03/16 22:00 10/16/16 09:56 Keppra - PO 500 mg BID ENOC Administration Losartan Potassium 100 mg 10/04/16 10:00 10/16/16 09:55 Cozaar - PO 100 mg DAILY ENOC Administration Pantoprazole Sodium 40 mg 10/04/16 10:00 10/16/16 09:56 Protonix - PO 40 mg DAILY ENOC Administration Quetiapine Fumarate 25 mg 10/16/16 22:00 Seroquel - PO HS ENOC A/P 76 y/o patient with multiple brain mets. DELMAR lung lesion, mediastinal adenopathy , thickening of colon s/p ivc filter , given DVT and brain mets s/p biopsy of DELMAR lung mass biopsy c/w necrotic tumor most c/w melanoma will check mutation analysis continue decadron/protonix rad-onc to consider WBRT would need placement after radiation therapy
[2016-10-16] MEDS ORDERED: INSULIN (NOVOLOG) ASPART 100 UNITS/ML 10ML VIAL ONE (18:20)
[2016-10-16] MEDS: QUEtiapine FUMARATE 25 MG TABLET (FP) PO SCH (21:49)
[2016-10-16] MEDS ORDERED: INSULIN (NOVOLOG) ASPART 100 UNITS/ML 10ML VIAL SQ ONE (23:00)
[2016-10-17] MEDS ORDERED: PT OWN MED DRAWER 7, Y5N ONE ×2 (06:14→17:30)
[2016-10-17] MEDS: GLIMEPIRIDE 4 MG TABLET (FP) PO SCH ×2 (06:46→17:39)
[2016-10-17] MEDS: DEXAMETHASONE 4 MG TABLET (FP) PO SCH ×3 (06:46→17:38)
[2016-10-17] MEDS: INSULIN SLIDING SCALE (NOVOLOG) 1 VIAL SQ SCH ×4 (06:48→22:15)
[2016-10-17 07:35] LABS: BASOPHIL 0.1 % (0-2.0); MCH 28.2 pg (25.7-33.7); MCHC 32.8 g/dl (32.0-35.9); MEAN PLT VOLUME 8.3 fl (7.5-11.1); NEUTROPHILS 90.4 % (42.8-82.8); PLATELET COUNT 190 K/MM3 (134-434); RDW 13.5 % (11.9-15.9); WHITE BLOOD COUNT 19.3 K/mm3 (4.0-10.0)
[2016-10-17 08:13] LABS: ALBUMIN 2.6 g/dl (3.4-5.0); ANION GAP 11 (8-16); CALCIUM 8.8 mg/dL (8.5-10.1); CO2 29 mmol/L (21-32); GLUCOSE,RANDOM 198 mg/dL (74-106); SGOT/AST 6 U/L (15-37); SGPT/ALT 26 U/L (12-78)
[2016-10-17 08:19] LABS: ALK PHOS 49 U/L (45-117); BILIRUBIN,TOTAL 0.6 mg/dL (0.2-1.0); TOT PROT 5.3 g/dl (6.4-8.2)
--- NOTE | 2016-10-17 09:17 | PN ---
Progress Note (short form) - Note Progress Note: NEUROSURGERY Wants to go home;upset at times had a long conversation about disposition and safety No H/A, N/V PE: AF, VSS HEENT- NC/AT; Neck- supple; Cor- RR; Lungs- CTA; Abd- mildly distended, + BS; Ext- edema and chronic venous changes R > L distal LE; stable A/A/Ox3, speech fluent CN- intact II-XII; Motor- 5/5 without drift; Sensation- intact LT/vibration; Cerebellar- intact B FTN; gait- stable Path L lung bx- melanoma Multifocal hemorrhagic brain mets Cont Keppra R LE DVT, s/p IVC filter Tx to follow per oncology and rad onc - immunotherapy and XRT D/w Dr Nielson
--- NOTE | 2016-10-17 10:13 | PN ---
Progress Note (short form) - Note Progress Note: Rad Onc Wants to go home. Reports dry mouth. Denies h/a, n/v, dizziness. Bx+ metastatic melanoma Came to office to begin whole brain RT today. Tolerated simulation and 1st tx without difficulty. Cont decadron and keppra. Will cont daily WBRT as tolerated. Systemic/immunotherapy to follow per med onc.
[2016-10-17] MEDS: PANTOPRAZOLE 40 MG TABLET (FP) PO SCH (10:54)
[2016-10-17] MEDS: LOSARTAN POTASSIUM 50 MG TABLET (FP) PO SCH (10:54)
[2016-10-17] MEDS: levETIRAcetam 500 MG TABLET (FP) PO SCH ×2 (10:54→21:22)
[2016-10-17] MEDS: CARVEDILOL 25 MG TABLET (FP) PO SCH (10:54)
[2016-10-17] MEDS ORDERED: INSULIN (NOVOLOG) ASPART 100 UNITS/ML 10ML VIAL ONE ×2 (12:20→20:56)
--- NOTE | 2016-10-17 16:57 | PN ---
Progress Note (short form) - Note Progress Note: PAtient seen and examined Denies any complaints confused pleasant Last Vital Signs Temp Pulse Resp BP Pulse Ox 97.7 F 81 20 133/62 96 10/17/16 10:00 10/17/16 10:00 10/17/16 10:00 10/17/16 10:00 10/17/16 09:00 Cor: RSR, No murmurs, No gallops Lungs: Clear to P&A Abd: Soft, Normal bowel sounds, No organomegaly Ext:No significant edema Abnormal Lab Results 10/17/16 10/17/16 06:15 06:15 WBC 19.3 H D Neutrophils % 90.4 H Lymphocytes % 6.1 L D Monocytes % 3.4 L BUN 34 H Random Glucose 198 H D AST 6 L D Total Protein 5.3 L Albumin 2.6 L Active Medications Generic Name Dose Route Start Last Admin Trade Name Freq PRN Reason Stop Dose Admin Carvedilol 25 mg 10/04/16 10:00 10/17/16 10:54 Coreg - PO 25 mg DAILY ENOC Administration Dexamethasone 4 mg 10/14/16 18:00 10/17/16 12:37 Decadron - PO 4 mg Q6HPO ENOC Administration Glimepiride 4 mg 10/04/16 10:00 10/17/16 06:46 Amaryl - PO 4 mg 0700,1630 ENOC Administration Insulin Aspart 1 vial 10/16/16 11:52 10/17/16 12:35 Novolog Vial Sliding Scale - SQ 12 units TIDAC ENOC Administration Protocol Insulin Detemir 18 units 10/16/16 12:03 10/16/16 21:49 Levemir Vial SQ 18 units HS ENOC Administration Levetiracetam 500 mg 10/03/16 22:00 10/17/16 10:54 Keppra - PO 500 mg BID ENOC Administration Losartan Potassium 100 mg 10/04/16 10:00 10/17/16 10:54 Cozaar - PO 100 mg DAILY ENOC Administration Pantoprazole Sodium 40 mg 10/04/16 10:00 10/17/16 10:54 Protonix - PO 40 mg DAILY ENOC Administration Quetiapine Fumarate 25 mg 10/16/16 22:00 10/16/16 21:49 Seroquel - PO 25 mg HS ENOC Administration A/P 76 y/o patient with multiple brain mets. DELMAR lung lesion, mediastinal adenopathy , thickening of colon s/p ivc filter , given DVT and brain mets s/p biopsy of DELMAR lung mass biopsy c/w necrotic tumor most c/w melanoma mutation analysis for BRAF is pending continue decadron/protonix started RT to consider ipilumumab vs vemurafenib based on mutation analysis d/c planning per primary team/social media content manager
--- NOTE | 2016-10-17 17:26 | PN ---
Progress Note (short form) - Note Progress Note: Patient remained at his base calm after Seroquel , received Ist RT today line Hemodynamically stable, confused , wants to go home, Vital Signs Temperature 97.7 F 10/17/16 10:00 Pulse Rate 81 10/17/16 10:00 Respiratory Rate 20 10/17/16 10:00 Blood Pressure 133/62 10/17/16 10:00 O2 Sat by Pulse Oximetry (%) 96 10/17/16 09:00 Active Medications Generic Name Dose Route Start Last Admin Trade Name Miguel PRN Reason Stop Dose Admin Carvedilol 25 mg 10/04/16 10:00 10/17/16 10:54 Coreg - PO 25 mg DAILY ENOC Administration Dexamethasone 4 mg 10/14/16 18:00 10/17/16 12:37 Decadron - PO 4 mg Q6HPO ENOC Administration Glimepiride 4 mg 10/04/16 10:00 10/17/16 06:46 Amaryl - PO 4 mg 0700,1630 ENOC Administration Insulin Aspart 1 vial 10/16/16 11:52 10/17/16 17:05 Novolog Vial Sliding Scale - SQ Not Given TIDAC [facility] Protocol Insulin Detemir 24 units 10/17/16 17:22 Levemir Vial SQ HS [facility] Levetiracetam 500 mg 10/03/16 22:00 10/17/16 10:54 Keppra - PO 500 mg BID ENOC Administration Losartan Potassium 100 mg 10/04/16 10:00 10/17/16 10:54 Cozaar - PO 100 mg DAILY ENOC Administration Pantoprazole Sodium 40 mg 10/04/16 10:00 10/17/16 10:54 Protonix - PO 40 mg DAILY ENOC Administration Quetiapine Fumarate 25 mg 10/16/16 22:00 10/16/16 21:49 Seroquel - PO 25 mg HS ENOC Administration Elderly man not in distress sleeping General: Well groomed dressed up wants to go home not in distress HEENT: Mm moist, no anemia, PERRLA, EOMI NECK: No JVD No Bruit, No Palpable nodes, Trachea , central. 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 Recived Ist RT HTN: well Controlled Hold HCTZ rest cont same T2DM: Poorly controlled due to Dexamethasone increase Levimir to 24 units cont Correction dose RT LE DVT: S/P IVC not on Ac for Brain mets. Agitation; add S25 mg daily Serqoqulel and PRN Lorazepalm. Discussed with the nurse taking care of the patient. Disposition; Home after RT Problem List - Problems (1) Brain metastases Code(s): C79.31 - SECONDARY MALIGNANT NEOPLASM OF BRAIN (2) Blurry vision, bilateral Code(s): H53.8 - OTHER VISUAL DISTURBANCES (3) HTN (hypertension) Code(s): I10 - ESSENTIAL (PRIMARY) HYPERTENSION (4) Diabetes mellitus Code(s): E11.9 - TYPE 2 DIABETES MELLITUS WITHOUT COMPLICATIONS Qualifiers: Diabetes mellitus type: type 2 Diabetes mellitus complication status: without complication (5) Deep vein blood clot of right lower extremity Code(s): I82.401 - ACUTE EMBOLISM AND THOMBOS UNSP DEEP VEINS OF R LOW EXTREM Qualifiers: Affected thrombotic vein of extremity: femoral Chronicity: acute Qualified Code(s): I82.411 - Acute embolism and thrombosis of right femoral vein (6) Pulmonary nodule Code(s): R91.1 - SOLITARY PULMONARY NODULE (7) Elevated WBC count Code(s): D72.829 - ELEVATED WHITE BLOOD CELL COUNT, UNSPECIFIED
[2016-10-17] MEDS ORDERED: INSULIN (NOVOLOG) ASPART 100 UNITS/ML 10ML VIAL SQ ONE ×2 (18:00→21:45)
[2016-10-17] MEDS: QUEtiapine FUMARATE 25 MG TABLET (FP) PO SCH (21:22)
[2016-10-17] MEDS ORDERED: INSULIN DETEMIR 100 UNITS/ML MDV SQ SCH (22:00)
[2016-10-18] MEDS: DEXAMETHASONE 4 MG TABLET (FP) PO SCH ×4 (00:36→17:22)
[2016-10-18] MEDS ORDERED: INSULIN (NOVOLOG) ASPART 100 UNITS/ML 10ML VIAL SQ ONE (06:00)
[2016-10-18] MEDS: INSULIN SLIDING SCALE (NOVOLOG) 1 VIAL SQ SCH ×4 (06:21→21:52)
[2016-10-18] MEDS: GLIMEPIRIDE 4 MG TABLET (FP) PO SCH ×2 (06:41→17:22)
--- NOTE | 2016-10-18 10:52 | PN ---
Progress Note (short form) - Note Progress Note: Radiation Oncology: Patient tolerating treatment. He completed 2 of 10 fractions. He seems more alert. No gross neurologic deficit. Plan is to continue treatment.
[2016-10-18] MEDS: LOSARTAN POTASSIUM 50 MG TABLET (FP) PO SCH (11:22)
[2016-10-18] MEDS: CARVEDILOL 25 MG TABLET (FP) PO SCH (11:23)
[2016-10-18] MEDS: levETIRAcetam 500 MG TABLET (FP) PO SCH ×2 (11:23→21:50)
[2016-10-18] MEDS: PANTOPRAZOLE 40 MG TABLET (FP) PO SCH (11:23)
--- NOTE | 2016-10-18 13:59 | PN ---
Progress Note (short form) - Note Progress Note: Patient remained at his base calm after Seroquel but FS are running high will switch to risperidol,, received 2st RT today line Hemodynamically stable, confused , wants to go home, Vital Signs Temperature 97.7 F 10/17/16 10:00 Pulse Rate 81 10/17/16 10:00 Respiratory Rate 20 10/17/16 10:00 Blood Pressure 133/62 10/17/16 10:00 O2 Sat by Pulse Oximetry (%) 96 10/17/16 09:00 Active Medications Active Medications Generic Name Dose Route Start Last Admin Trade Name Freq PRN Reason Stop Dose Admin Carvedilol 25 mg 10/04/16 10:00 10/18/16 11:23 Coreg - PO 25 mg DAILY ENOC Administration Dexamethasone 4 mg 10/14/16 18:00 10/18/16 11:23 Decadron - PO 4 mg Q6HPO ENOC Administration Glimepiride 4 mg 10/04/16 10:00 10/18/16 06:41 Amaryl - PO 4 mg 0700,1630 ENOC Administration Insulin Aspart 1 vial 10/17/16 22:00 10/18/16 11:29 Novolog Vial Sliding Scale - SQ 10 units ACHS ENOC Administration Protocol Insulin Detemir 30 units 10/18/16 13:56 Levemir Vial SQ HS ENOC Levetiracetam 500 mg 10/03/16 22:00 10/18/16 11:23 Keppra - PO 500 mg BID ENOC Administration Losartan Potassium 100 mg 10/04/16 10:00 10/18/16 11:22 Cozaar - PO 100 mg DAILY ENOC Administration Pantoprazole Sodium 40 mg 10/04/16 10:00 10/18/16 11:23 Protonix - PO 40 mg DAILY ENOC Administration Risperidone 0.25 mg 10/18/16 22:00 Risperdal - PO BID ENOC Elderly man not in distress sleeping General: Well groomed dressed up wants to go home not in distress HEENT: Mm moist, no anemia, PERRLA, EOMI NECK: No JVD No Bruit, No Palpable nodes, Trachea , central. CHEST: Non tender, CTA B/L CVS: s1S2 R no m/g/r ABD: No distention, non tender BS + EXTL Rt LE edema, mild tenderness, Pulses + PRODUCT TRAINER: Alert but confused, no gross motor sensory deficit LABS: CBC, BMP 10/15/16 06:00 10/15/16 06:00 A/Plan: 76 yrs old male with H/O HTN, T2DM admitted with blurring of vision with Brain Mets, W/U shows Left UL Pulmonary mass Biopsy showed Melanoma, Confused due to Brain mass awaiting Brain RT as inpatient. 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 Recived Ist RT HTN: well Controlled Hold HCTZ rest cont same T2DM: Poorly controlled due to Dexamethasoe increase Levimir to 30 units cont. Correction dose RT LE DVT: S/P IVC not on Ac for Brain mets. Agitation; add S25 mg daily Serqoqulel and PRN Lorazepalm. Discussed with the nurse taking care of the patient. Disposition; Home after RT Problem List - Problems (1) Brain metastases Code(s): C79.31 - SECONDARY MALIGNANT NEOPLASM OF BRAIN (2) Blurry vision, bilateral Code(s): H53.8 - OTHER VISUAL DISTURBANCES (3) HTN (hypertension) Code(s): I10 - ESSENTIAL (PRIMARY) HYPERTENSION (4) Diabetes mellitus Code(s): E11.9 - TYPE 2 DIABETES MELLITUS WITHOUT COMPLICATIONS Qualifiers: Diabetes mellitus type: type 2 Diabetes mellitus complication status: without complication (5) Deep vein blood clot of right lower extremity Code(s): I82.401 - ACUTE EMBOLISM AND THOMBOS UNSP DEEP VEINS OF R LOW EXTREM Qualifiers: Affected thrombotic vein of extremity: femoral Chronicity: acute Qualified Code(s): I82.411 - Acute embolism and thrombosis of right femoral vein (6) Pulmonary nodule Code(s): R91.1 - SOLITARY PULMONARY NODULE (7) Elevated WBC count Code(s): D72.829 - ELEVATED WHITE BLOOD CELL COUNT, UNSPECIFIED
[2016-10-18] MEDS ORDERED: PT OWN MED DRAWER 7, Y5N ONE (17:19)
--- NOTE | 2016-10-18 17:35 | PN ---
Progress Note (short form) - Note Progress Note: Patient seen and examined Offers no complaints on ROS No headaches, chest pains, SOB, Dyspnea. Last Vital Signs Temp Pulse Resp BP Pulse Ox 98.0 F 78 20 115/66 96 10/18/16 14:48 10/18/16 14:48 10/18/16 14:48 10/18/16 14:48 10/18/16 09:00 HEENT: NEDRA, EOM Intact Oropharynx: No thrush, No mucositis Cor: RSR, No murmurs, No gallops Lungs: Clear to P&A Abd: Soft, Normal bowel sounds, No organomegaly Ext:No significant edema Skin: No rashes, Integument intact CBC, BMP 10/17/16 06:15 10/17/16 06:15 Current Medications Generic Name Dose Route Start Last Admin Trade Name Jean-Pierreq PRN Reason Stop Dose Admin Carvedilol 25 mg 10/04/16 10:00 10/18/16 11:23 Coreg - PO 25 mg DAILY ENOC Administration Dexamethasone 4 mg 10/14/16 18:00 10/18/16 17:22 Decadron - PO 4 mg Q6HPO ENOC Administration Glimepiride 4 mg 10/04/16 10:00 10/18/16 17:22 Amaryl - PO 4 mg 0700,1630 ENOC Administration Insulin Aspart 1 vial 10/17/16 22:00 10/18/16 17:28 Novolog Vial Sliding Scale - SQ Not Given ACHS [facility] Protocol Insulin Detemir 30 units 10/18/16 22:00 Levemir Vial SQ HS ENOC Levetiracetam 500 mg 10/03/16 22:00 10/18/16 11:23 Keppra - PO 500 mg BID ENOC Administration Losartan Potassium 100 mg 10/04/16 10:00 10/18/16 11:22 Cozaar - PO 100 mg DAILY ENOC Administration Pantoprazole Sodium 40 mg 10/04/16 10:00 10/18/16 11:23 Protonix - PO 40 mg DAILY ENOC Administration Risperidone 0.25 mg 10/18/16 22:00 Risperdal - PO BID ENOC Impression: Necrotic tumor consistent with melanoma 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 Continue with whole brain RT.
[2016-10-18] MEDS ORDERED: INSULIN (NOVOLOG) ASPART 100 UNITS/ML 10ML VIAL ONE (20:54)
[2016-10-18] MEDS: risperiDONE 0.25 MG TABLET (FP) PO SCH (21:50)
[2016-10-18] MEDS ORDERED: INSULIN DETEMIR 100 UNITS/ML MDV SQ SCH (22:00)
[2016-10-19] MEDS: DEXAMETHASONE 4 MG TABLET (FP) PO SCH ×2 (01:08→06:15)
[2016-10-19] MEDS: GLIMEPIRIDE 4 MG TABLET (FP) PO SCH (06:15)
[2016-10-19] MEDS: INSULIN SLIDING SCALE (NOVOLOG) 1 VIAL SQ SCH ×2 (06:16→11:45)
[2016-10-19] MEDS ORDERED: INSULIN (NOVOLOG) ASPART 100 UNITS/ML 10ML VIAL ONE (06:21)
[2016-10-19 06:57] VITALS: TEMP 97.5
[2016-10-19 07:21] LABS: MCHC 32.2 g/dl (32.0-35.9); MEAN CELL VOLUME 87.1 fl (80-96); MEAN PLT VOLUME 8.1 fl (7.5-11.1); PLATELET COUNT 187 K/MM3 (134-434); RDW 13.8 % (11.9-15.9)
[2016-10-19 07:54] LABS: ALBUMIN 2.8 g/dl (3.4-5.0); CALCIUM 8.3 mg/dL (8.5-10.1)
[2016-10-19 07:58] LABS: BILIRUBIN,TOTAL 0.8 mg/dL (0.2-1.0); CREATININE 1.2 mg/dL (0.7-1.3); TOT PROT 5.5 g/dl (6.4-8.2)
[2016-10-19] MEDS: PANTOPRAZOLE 40 MG TABLET (FP) PO SCH (10:01)
[2016-10-19] MEDS: CARVEDILOL 25 MG TABLET (FP) PO SCH (10:01)
[2016-10-19] MEDS: LOSARTAN POTASSIUM 50 MG TABLET (FP) PO SCH (10:01)
[2016-10-19] MEDS: risperiDONE 0.25 MG TABLET (FP) PO SCH (10:01)
[2016-10-19] MEDS: levETIRAcetam 500 MG TABLET (FP) PO SCH (10:01)
[2016-10-19 11:03] VITALS: BP 122/80; PULSE 74
[2016-10-19 12:53] LABS: ANISOCYTOSIS 1+; PLATELET ESTIMATE ADEQUATE (NORMAL)
--- NOTE | 2016-10-19 13:24 | PN ---
Progress Note (short form) - Note Progress Note: Patient remained at his base calm after Seroquel but FS are running high will switch to risperidol,, received 3st RT today line Hemodynamically stable, confused , wants to go home, Vital Signs Period Temp Pulse Resp BP Sys/Monreal Pulse Ox Last 24 Hr 97.5 F-98.3 F 74-100 18-20 111-131/58-80 97-99 Active Medications Generic Name Dose Route Start Last Admin Trade Name Miguel PRN Reason Stop Dose Admin Carvedilol 25 mg 10/04/16 10:00 10/18/16 11:23 Coreg - PO 25 mg DAILY ENOC Administration Dexamethasone 4 mg 10/14/16 18:00 10/18/16 11:23 Decadron - PO 4 mg Q6HPO ENOC Administration Glimepiride 4 mg 10/04/16 10:00 10/18/16 06:41 Amaryl - PO 4 mg 0700,1630 ENOC Administration Insulin Aspart 1 vial 10/17/16 22:00 10/18/16 11:29 Novolog Vial Sliding Scale - SQ 10 units ACHS ENOC Administration Protocol Insulin Detemir 30 units 10/18/16 13:56 Levemir Vial SQ HS [facility]OC Levetiracetam 500 mg 10/03/16 22:00 10/18/16 11:23 Keppra - PO 500 mg BID ENOC Administration Losartan Potassium 100 mg 10/04/16 10:00 10/18/16 11:22 Cozaar - PO 100 mg DAILY ENOC Administration Pantoprazole Sodium 40 mg 10/04/16 10:00 10/18/16 11:23 Protonix - PO 40 mg DAILY ENOC Administration Risperidone 1.00 mg 10/18/16 22:00 Risperdal - PO BID ENOC Elderly man not in distress sleeping General: Well groomed dressed up wants to go home not in distress HEENT: Mm moist, no anemia, PERRLA, EOMI NECK: No JVD No Bruit, No Palpable nodes, Trachea , central. 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 Recived Ist RT HTN: well Controlled Hold HCTZ rest cont same T2DM: Poorly controlled due to Dexamethasoe increase Levimir to 30 units cont. Correction dose RT LE DVT: S/P IVC not on Ac for Brain mets. Agitation; add S25 mg daily Serqoqulel and PRN Lorazepalm. Discussed with the nurse taking care of the patient. Disposition; Home after RT Problem List - Problems (1) Brain metastases Assessment/Plan: C/O Blurring of vision multiple, enhancing lesion, primary w/u in progress cont Keppra and IV Dexamethasone, Oncology and Neuro surgery input appreciated. Lung Biopsy shows Melanoma will cont PO Keppra and IV Dexamethsone awaiting Brain RT for mets. Code(s): C79.31 - SECONDARY MALIGNANT NEOPLASM OF BRAIN (2) Blurry vision, bilateral Assessment/Plan: Due to Brain mets , unknown Primary lesion, no clinical sign of cerbral edema, evaluated by Oncology and Neuro Surgery, will F/u work for primary site, mean time cont Dexamethasone and Keppra for seizures and Brain edema prophylaxis . Code(s): H53.8 - OTHER VISUAL DISTURBANCES (3) HTN (hypertension) Assessment/Plan: Well controlled on current meds, Cont Coreg, HCTZ and Losartan at home dose Hold Code(s): I10 - ESSENTIAL (PRIMARY) HYPERTENSION (4) Diabetes mellitus Assessment/Plan: H/O T2DM on oral pills will hold metformin cont Amaryl , considering on High dose steroids cont correction dose pre meal coverage. FS are poorly controlled will increase Insulin Levimir 15 units at bed time Code(s): E11.9 - TYPE 2 DIABETES MELLITUS WITHOUT COMPLICATIONS Qualifiers: Diabetes mellitus type: type 2 Diabetes mellitus complication status: without complication (5) Deep vein blood clot of right lower extremity Assessment/Plan: Patient c/o Rt LE swelling and pain for past few days, LE Doppler shows Rt LE extensive DVT including CFV, patient has multiple mets, so AC is contraindicated s/p IVC filter. Code(s): I82.401 - ACUTE EMBOLISM AND THOMBOS UNSP DEEP VEINS OF R LOW EXTREM Qualifiers: Affected thrombotic vein of extremity: femoral Chronicity: acute Qualified Code(s): I82.411 - Acute embolism and thrombosis of right femoral vein (6) Pulmonary nodule Assessment/Plan: 1.6 Cm Left UL Pulmonary nodule with Medistinal LN enlargement, s/p mass Biopsy developed pneumothorax s/p chest tube removed on 10/10/16, Biopsy result shows Melanoma Code(s): R91.1 - SOLITARY PULMONARY NODULE (7) Elevated WBC count Assessment/Plan: TWBC remained stable, most likely due to Dexamethason, patient is afebrile, no c/o cough, abd pain or dysuria, will observe. Code(s): D72.829 - ELEVATED WHITE BLOOD CELL COUNT, UNSPECIFIED
== END 2016-10-19 13:42 | disposition home or self-care (01) | DRG 40 ==
LOC: JER 16:51 → JERBED 18:13 → J7W 22:54
PROVIDERS: ADMIT Internal Medicine; ATTEND Internal Medicine
PROC: 06H03DZ Insertion of Intraluminal Device into Inferior Vena Cava, Percutaneous Approach (ICD-10-PCS; 2016-10-05)
PROC: 0BBL3ZX Excision of Left Lung, Percutaneous Approach, Diagnostic (ICD-10-PCS; principal; 2016-10-07)
PROC: 0B9N30Z Drainage of Right Pleura with Drainage Device, Percutaneous Approach (ICD-10-PCS; 2016-10-07)
PROC: 0BPQX0Z Removal of Drainage Device from Pleura, External Approach (ICD-10-PCS; 2016-10-10)
PROC: D0Y07ZZ Contact Radiation of Brain (ICD-10-PCS; 2016-10-17)
DX: C79.31 Secondary malignant neoplasm of brain (principal); G93.6 Cerebral edema; I82.411 Acute embolism and thrombosis of right femoral vein; J95.811 Postprocedural pneumothorax; C34.92 Malignant neoplasm of unspecified part of left bronchus or lung; I10 Essential (primary) hypertension; E11.9 Type 2 diabetes mellitus without complications; Z87.891 Personal history of nicotine dependence; Z79.84 Long term (current) use of oral hypoglycemic drugs; R91.1 Solitary pulmonary nodule; K63.9 Disease of intestine, unspecified; H53.8 Other visual disturbances; R59.0 Localized enlarged lymph nodes; Z91.14 Patient's other noncompliance with medication regimen; I51.7 Cardiomegaly; Y84.9 Medical procedure, unspecified as the cause of abnormal reaction of the patient, or of later complication, without mention of misadventure at the time of the procedure
CPT/HCPCS: 32405; 32557; 36415; 37191; 70553-TC; 71010-TC; 71020-TC; 71260-TC; 74177-TC; 76098-TC; 76937-TC; 77012-TC; 80053; 81003; 82550; 83615; 84484; 85025; 85384; 85610; 85730; 86850; 86900; 86901; 87899; 88305-TC; 88341-TC; 93005; 93010; 93970-TC; 99285-25; C1729; C1769; C1880; Q9967

== ENCOUNTER 2016-11-22 13:52 | Inpatient (IN) | payer OTHER ==
[2016-11-22 14:00] VITALS: BMI 24.3
--- NOTE | 2016-11-22 14:45 | PDOC ---
History of Present Illness <Rashida Ku - Last Filed: 11/22/16 16:42> - General History Source: Patient, Family Exam Limitations: No Limitations - History of Present Illness Initial Comments: 76 yo M history melanoma with brain mets presents with diffuse body pains. Sent by Dr. Nielson for admission (Dr. Nielson called prior to patient arrival- for admission for hospice evaluation). As per family, he does not usually require pain medication, but recently he has been having pain in multiple locations, worst in his abdomen. Denies N/V/D, constipation, f/c, SOB, dysuria. <Ansley Mercado - Last Filed: 11/22/16 16:47> - General Chief Complaint: Pain Stated Complaint: STOMACH PAIN Time Seen by Provider: 11/22/16 14:44 Past History <Rashida Ku - Last Filed: 11/22/16 16:42> - Past Medical History Diabetes: Yes HTN: Yes - Surgical History Cholecystectomy: Yes - Immunization History Immunization Up to Date: Yes - Psycho/Social/Smoking Cessation Hx Suicidal Ideation: No Smoking History: Never smoked Have you smoked in the past 12 months: No If you are a former smoker, when did you quit?: 30years ago Information on smoking cessation initiated: No Hx Alcohol Use: No Drug/Substance Use Hx: No <Ansley Mercado - Last Filed: 11/22/16 16:47> - Past Medical History Allergies/Adverse Reactions: Allergies Allergy/AdvReac Type Severity Reaction Status Date / Time No Known Allergies Allergy Verified 11/22/16 13:54 Home Medications: Ambulatory Orders Carvedilol [Coreg] 25 mg PO DAILY 10/03/16 Glimepiride [Amaryl -] 4 mg PO BID 10/03/16 Losartan Potassium 100 mg PO DAILY 10/03/16 Insulin (Levemir) [Levemir Vial] 30 units SQ HS #1 vial 10/19/16 Levetiracetam [Keppra -] 500 mg PO BID #60 tablet 10/19/16 Pantoprazole Sodium [Protonix -] 40 mg PO DAILY #30 tab 10/19/16 Aspirin [Ecotrin] 81 mg PO DAILY 11/22/16 Dexamethasone [Decadron -] 4 mg PO TID 11/22/16 Review of Systems - Review of Systems Able to Perform ROS?: Yes Comments:: GENERAL/CONSTITUTIONAL: No fever or chills. No weakness. HEAD, EYES, EARS, NOSE AND THROAT: No change in vision. No ear pain or discharge. No sore throat. CARDIOVASCULAR: No chest pain or shortness of breath. RESPIRATORY: No cough, wheezing, or hemoptysis. GASTROINTESTINAL: +Abdominal pain. No nausea, vomiting, diarrhea or constipation. GENITOURINARY: No dysuria, frequency, or change in urination. MUSCULOSKELETAL: No joint or muscle swelling or pain. No neck or back pain. SKIN: No rash NEUROLOGIC: No headache, vertigo, loss of consciousness, or change in strength/ sensation. ENDOCRINE: No increased thirst. No abnormal weight change. HEMATOLOGIC/LYMPHATIC: No anemia, easy bleeding, or history of blood clots. ALLERGIC/IMMUNOLOGIC: No hives or skin allergy. <Ansley Mercado - Last Filed: 11/22/16 16:47> *Physical Exam - Vital Signs Last Vital Signs Temp Pulse Resp BP Pulse Ox 95 H 17 108/60 94 L 11/22/16 13:54 11/22/16 13:54 11/22/16 13:54 11/22/16 13:54 <[place] - Last Filed: 11/22/16 16:42> - Vital Signs Last Vital Signs Temp Pulse Resp BP Pulse Ox 95 H 17 108/60 94 L 11/22/16 13:54 11/22/16 13:54 11/22/16 13:54 11/22/16 13:54 - Physical Exam Comments: GENERAL: Awake, alert, and fully oriented, in no acute distress HEAD: No signs of trauma EYES: PERRLA, EOMI, sclera anicteric, conjunctiva clear ENT: Auricles normal inspection, hearing grossly normal, nares patent, oropharynx clear without exudates. Moist mucosa NECK: Normal ROM, supple, no lymphadenopathy, JVD, or masses LUNGS: Breath sounds equal, clear to auscultation bilaterally. No wheezes, and no crackles HEART: Regular rate and rhythm, normal S1 and S2, no murmurs, rubs or gallops ABDOMEN: Mildly distended, diffusely tender. Normoactive bowel sounds. + Guarding, no rebound. No masses EXTREMITIES: Normal range of motion, no edema. No clubbing or cyanosis. No cords, erythema, or tenderness NEUROLOGICAL: Cranial nerves II through XII grossly intact. Normal speech, normal gait SKIN: Warm, Dry, normal turgor, no rashes or lesions noted. <Ansley Mercado - Last Filed: 11/22/16 16:47> Heart Score/ECG Review - ECG Impressions Comment:: EKG read 15:25- NSR 99 bpm, LAD, no acute ST/T changes <Ansley Mercado - Last Filed: 11/22/16 16:47> ED Treatment Course - LABORATORY CBC & Chemistry Diagram: 11/22/16 15:06 11/22/16 15:06 <Rashida Ku - Last Filed: 11/22/16 16:42> - LABORATORY CBC & Chemistry Diagram: 11/22/16 15:06 11/22/16 15:06 <Ansley Mercado - Last Filed: 11/22/16 16:47> Medical Decision Making - Medical Decision Making 11/22/16 16:42 EXAM: CT/ABDOMEN & PELVIS CT W/O CONTR Reviewed By: Dr. Nasim Enciso IMPRESSION: In comparison to a previous CT exam of 10/04/2016 interval development of a small amount of free fluid is noted within the upper abdomen and right lower quadrant. Apparent interval development of nonspecific concentric wall thickening is seen of the terminal ileum - ? enteritis versis neoplastic disease. Increased left adrenal gland enlargement is noted which may be on a hemorrhagic basis. Interval development of focal edema within the right posterolateral abdominal wall musculature with overlying subcutaneous edema. Development of mild left flank subcutaneous edema is also seen. Mild focal nonspecific concentric wall thickening along the ascending colon noted on the previous exam is difficult to appreciate on the current study. Mild right lower quadrant mesenteric lymphadenopathy without definite interval change. Status post cholecystectomy. Colonic diverticulosis. <Rashida Ku - Last Filed: 11/22/16 16:42> *DC/Admit/Observation/Transfer - Attestations Scribe Attestion: 11/22/16 15:20 Documentation prepared by Rashida Ku, acting as manager medical writing for Ansley Mercado MD. <Rashida Ku - Last Filed: 11/22/16 16:42> - Discharge Dispostion Admit: Yes <Ansley Mercado - Last Filed: 11/22/16 16:47> Diagnosis at time of Disposition: Colonic thickening, Brain metastases - Discharge Dispostion Condition at time of disposition: Stable - Referrals Referrals: Chelle Nielson MD [Primary Care Provider] -
[2016-11-22] MEDS ORDERED: morphine CARPU-JECT 4 MG/1 ML DISP.SYRIN IVPUSH ONE ×2 (15:23→16:04)
[2016-11-22] MEDS ORDERED: SODIUM CHLORIDE 2,000 ML IV STA (15:23)
[2016-11-22] MEDS ORDERED: morphine CARPU-JECT 4 MG/1 ML DISP.SYRIN ONE ×2 (15:24→16:16)
[2016-11-22 15:35] LABS: BASOPHIL 0.1 % (0-2.0); MCH 27.2 pg (25.7-33.7); MEAN CELL VOLUME 87.9 fl (80-96); MEAN PLT VOLUME 7.6 fl (7.5-11.1); PLATELET COUNT 217 K/MM3 (134-434); RDW 15.7 % (11.9-15.9); WHITE BLOOD COUNT 10.2 K/mm3 (4.0-10.0)
[2016-11-22 15:54] LABS: ALBUMIN 1.9 g/dl (3.4-5.0); BILIRUBIN,TOTAL 0.8 mg/dL (0.2-1.0); CALCIUM 7.9 mg/dL (8.5-10.1); COCKROFT - GAULT 51.9; CREATININE 1.3 mg/dL (0.7-1.3); TOT PROT 4.8 g/dl (6.4-8.2)
[2016-11-22 18:51] VITALS: TEMP 97.9
--- NOTE | 2016-11-22 20:23 | CONSULT ---
Consult Consult Specialty:: Oncology Referred by:: Dr. 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) Cardio/Vascular: Yes: HTN Pulmonary: Yes: Other (lung mets) Gastrointestinal: Yes: Other (colonic thickening) Endocrine: Yes: Diabetes Mellitus - Alcohol/Substance Use Hx Alcohol Use: No - Smoking History Smoking history: Never smoked Have you smoked in the past 12 months: No If you are a former smoker, when did you quit?: 30years ago Home Medications - Allergies Allergies/Adverse Reactions: Allergies Allergy/AdvReac Type Severity Reaction Status Date / Time No Known Allergies Allergy Verified 11/22/16 13:54 - Home Medications Home Medications: Ambulatory Orders Carvedilol [Coreg] 25 mg PO DAILY 10/03/16 Glimepiride [Amaryl -] 4 mg PO BID 10/03/16 Losartan Potassium 100 mg PO DAILY 10/03/16 Insulin (Levemir) [Levemir Vial] 30 units SQ HS #1 vial 10/19/16 Levetiracetam [Keppra -] 500 mg PO BID #60 tablet 10/19/16 Pantoprazole Sodium [Protonix -] 40 mg PO DAILY #30 tab 10/19/16 Aspirin [Ecotrin] 81 mg PO DAILY 11/22/16 Dexamethasone [Decadron -] 4 mg PO TID 11/22/16 Review of Systems - Review of Systems Constitutional: reports: Lethargy, Loss of Appetite, Weakness. denies: Night Sweats, Unintentional Wgt. Loss Eyes: denies: Blind Spots, Blurred Vision, Double Vision HENT: denies: Difficult Swallowing, Epistaxis Neck: denies: Swollen Glands, Tenderness Cardiovascular: denies: Chest Pain, Shortness of Breath Respiratory: denies: Cough, Hemoptysis, SOB Gastrointestinal: reports: Abdominal Pain Genitourinary: denies: Burning, Dysuria, Flank Pain Musculoskeletal: reports: Muscle Weakness Integumentary: reports: No Symptoms Neurological: reports: Weakness. denies: Headache, Syncope Endocrine: reports: No Symptoms Hematology/Lymphatic: denies: Excessive Bleeding, Swollen Glands Psychiatric: reports: No Symptoms Physical Exam Vital Signs: Vital Signs Temperature 97.9 F 11/22/16 18:40 Pulse Rate 92 H 11/22/16 18:40 Respiratory Rate 18 11/22/16 18:40 Blood Pressure 90/48 11/22/16 18:40 O2 Sat by Pulse Oximetry (%) 95 11/22/16 18:40 Constitutional: Yes: Moderate Distress, Other (Ill appearing) Eyes: Yes: PERRL. No: Diplopia, Ptosis, Sclera Icterus HENT: Yes: Normocephalic. No: Hoarseness, Pharyngeal Erythema, Thrush Neck: Yes: Supple Cardiovascular: Yes: Regular Rate and Rhythm Respiratory: Yes: Diminished Gastrointestinal: Yes: Hypoactive Bowel Sounds, Tenderness. No: Ascites Renal/: No: CVA Tenderness - Left, CVA Tenderness - Right Musculoskeletal: No: Muscle Weakness Extremities: No: Calf Tenderness, Cyanosis Edema: LLE: 2+, RLE: 2+ Integumentary: No: Bruising, Erythema Neurological: Yes: Lethargy Psychiatric: Yes: WNL Problem List - Problems (1) Brain metastases Assessment/Plan: Melanoma with brain mets- s/p whole brain RT Lethargic , weak Code(s): C79.31 - SECONDARY MALIGNANT NEOPLASM OF BRAIN (2) Diabetes mellitus Code(s): E11.9 - TYPE 2 DIABETES MELLITUS WITHOUT COMPLICATIONS Qualifiers: Diabetes mellitus type: type 2 (3) Elevated WBC count Assessment/Plan: ?? secondary to malignancy vs infection Code(s): D72.829 - ELEVATED WHITE BLOOD CELL COUNT, UNSPECIFIED (4) Melanoma Assessment/Plan: Malignant melanoma with brain mets, s/p whole brain Rt, lung mets, mediastinal nodes. Declined additional therapy after WBRT Code(s): C43.9 - MALIGNANT MELANOMA OF SKIN, UNSPECIFIED (5) Abdominal pain Assessment/Plan: Diffuse tenderness- thickening of colon; abnormal CT Code(s): R10.9 - UNSPECIFIED ABDOMINAL PAIN Assessment/Plan 76 year old with malignant melanoma, metastatic to brain, s/p whole brain RT, lung, mediastinum, likely abdomen. After WBRT, declined further systemic therapy. Would consider hospice care. Would hydrate, treat hyperglycmia, and obtain GI assessment. Consider zosyn and flagyl IV Antibiotics. Define goals
[2016-11-22] MEDS ORDERED: morphine CARPU-JECT 2 MG/1 ML DISP.SYRIN IVPUSH PRN (20:56)
[2016-11-22] MEDS ORDERED: INSULIN (NOVOLOG) ASPART 100 UNITS/ML 10ML VIAL ONE (21:26)
[2016-11-22] MEDS ORDERED: INSULIN SLIDING SCALE (NOVOLOG) 1 VIAL SQ SCH (22:00)
[2016-11-22 23:35] VITALS: BP 135/86; PULSE 112
--- NOTE | 2016-11-23 01:13 | RAPID ---
Physical Examination Vital Signs: Rapid Response - Rapid Response Assessment: 76 yr old with metastatic melanoma to the brain admitted for hospice evaluation. called by nursing because patient appeared to be short of breath and was non- responsive. pupils pinpoint and nonreactive to light. no radial pulse, strong femoral pulse. pt non responsive to auditory or noxious stimuli. labored breathing with non-rebreather, crackles and wheezes throughout b/l lungs. Called placed to daughter by nursing film editor supervisor, myself and Dr. Chavez, the documented health care proxy, confirmed that patient is DNR/DNI. witnessed by nurse and dnr/dni documented in chart. Dr. Nielson, PCP notified. Daughter to arrive shortly. Patient made comfortable, morphine administered. Re-called by nursing to evaluate for expiration. Family at bedside. Patient non-reponsive to verbal or noxious stimuli. No breath sounds b/l, no heart sounds, no carotid/radial/femoral/DP pulses. pupils dilated fixed nonreactive to light, no corneal reflex. Patient , time of 1:40AM.
--- NOTE | 2016-11-23 13:57 | EKG ---
Test Reason : Blood Pressure : / mmHG Vent. Rate : 099 BPM Atrial Rate : 099 BPM P-R Int : 112 ms QRS Dur : 084 ms QT Int : 354 ms P-R-T Axes : 019 -13 052 degrees QTc Int : 454 ms NORMAL SINUS RHYTHM LOW VOLTAGE QRS NONSPECIFIC ST ABNORMALITY ABNORMAL ECG WHEN COMPARED WITH ECG OF 05-OCT-2016 09:45, PREMATURE VENTRICULAR COMPLEXES ARE NO LONGER PRESENT NONSPECIFIC T WAVE ABNORMALITY NO LONGER EVIDENT IN INFERIOR LEADS NONSPECIFIC T WAVE ABNORMALITY NO LONGER EVIDENT IN LATERAL LEADS Confirmed by TON ALFARO, DEMIAN ([id number]) on 11/23/2016 1:56:44 PM Referred By: Confirmed By:DEMIAN CAMILO MD
== END 2016-11-23 03:20 | disposition expired | DRG 181 ==
LOC: JER 13:52 → JERBED 16:37 → J5S 18:51
PROVIDERS: ADMIT Internal Medicine; ATTEND Internal Medicine
DX: C34.90 Malignant neoplasm of unspecified part of unspecified bronchus or lung (principal); C78.1 Secondary malignant neoplasm of mediastinum; C79.31 Secondary malignant neoplasm of brain; D72.829 Elevated white blood cell count, unspecified; R10.9 Unspecified abdominal pain; E11.9 Type 2 diabetes mellitus without complications; I10 Essential (primary) hypertension; Z66 Do not resuscitate; I46.9 Cardiac arrest, cause unspecified
CPT/HCPCS: 36415; 71010-TC; 74176-TC; 80053; 85025; 93005; 93010; 94660; 99285-25